=== PATIENT | male | born 1980 | race Two or more races ===

== ENCOUNTER 2020-04-08 07:40 | Outpatient (REF) | payer OTHER, SELFPAY ==
--- NOTE | ~2020-04-08 | US_ITS ---
EXAMINATION: US ABDOMEN COMPLETE CLINICAL INFORMATION: Right upper quadrant pain. COMPARISON: None TECHNIQUE: Real-time imaging of the abdominal viscera. FINDINGS: PANCREAS: Visualized portions ABDOMINAL AORTA: The proximal, mid, and distal segments are normal in caliber. INFERIOR VENA CAVA: Visualized portions are normal. LIVER: Normal. The liver is normal in size. The liver contour is normal. Parenchymal echogenicity is normal. No focal hepatic lesion. There is no intrahepatic biliary duct dilatation seen. A tiny anechoic cyst in the right lobe measures 0.6 cm. GALLBLADDER: Normal. The gallbladder is physiologically distended without evidence of stones, sludge, polyps, wall thickening or pericholecystic fluid. COMMON BILE DUCT: Normal in caliber measuring 0.5 cm in diameter. RIGHT KIDNEY: Normal. No hydronephrosis. No renal calculi or focal parenchymal lesions. The kidney measures 10.6 cm in maximum dimension. LEFT KIDNEY: Normal. No hydronephrosis. No renal calculi or focal parenchymal lesions. The kidney measures 11.7 cm in maximum dimension. SPLEEN: Normal. The spleen measures 14.0 cm in maximum dimension. FREE FLUID: None. OTHER: In the region of the palpable lump in the right flank is a subcutaneous echogenic focus just deep to the skin measuring 1.5 x 1.0 x 1.1 cm. A similar centimeters echogenic focus is also seen in the left flank measuring 0.8 x 0.6 x 0.6 cm. Color Doppler showed no abnormal vascular flow. US/US abdomen complete IMPRESSION: 1. Tiny right hepatic cyst demonstrates benign features without other significant intra-abdominal abnormality. 2. Tiny subcutaneous echogenic foci in the flanks bilaterally correlate with the palpable lumps. These demonstrate benign features most consistent with small lipomas. * If these findings persist or enlarge, short-term repeat targeted soft tissue ultrasound can be performed as clinically indicated to assess for change.
[2020-04-08 08:48] LABS: Hematocrit 41.3 % (42-52); Hemoglobin 13.4 g/dl (14.0-18.0); Mean Corpuscular HGB Conc 32.4 g/dl (31.0-36.0); Mean Corpuscular Hemoglobin 29.6 pg (27.0-33.0); Mean Corpuscular Volume 91.4 fL (80-98); Mean Platelet Volume 10.9 fL (9.4-12.4); Platelet Count 252 X10*3/uL (160-400); Red Blood Count 4.52 X10*6/uL (4.60-5.80); Red Cell Distribution Width 13.1 % (11.0-16.0); White Blood Count 7.6 X10*3/uL (4.8-10.8)
[2020-04-08 09:03] LABS: Estimated Average Glucose 108 mg/dL; Hemoglobin A1c % 5.4 %
[2020-04-08 09:10] LABS: Alanine Aminotransferase 17 U/L (0-40); Albumin Level 4.2 g/dL (3.5-5.0); Alkaline Phosphatase 61 U/L (39-117); Anion Gap 13 (12-20); Aspartate Amino Transferase 19 U/L (5-37); Bilirubin Total 0.5 mg/dL (0.0-1.0); Blood Urea Nitrogen 17 mg/dL (9-16); Calcium 8.8 mg/dL (8.4-10.2); Carbon Dioxide 26 mmol/L (22-29); Chloride 103 mmol/L (96-108); Cholesterol 244 mg/dL; Estimated Glomerular Filt Rate > 60; Glucose Fasting 92 mg/dL (60-99); HDL Cholesterol 42 mg/dL; LDL Cholesterol Calculated 175 mg/dl; Potassium 4.3 mmol/L (3.3-5.1); Sodium 138 mmol/L (135-145); Triglycerides 138 mg/dL
[2020-04-08 09:33] LABS: TSH reflex Free T4 1.73 uIU/mL (0.32-4.0)
[2020-04-08 10:31] LABS: HBc Num1 0.06 S/CO (0.00-0.79); Hepatitis B Core Antibody Nonreactive (Nonreactive); ~Hepatitis B Surface Antibody NONREACTIVE (Nonreactive)
[2020-04-08 10:37] LABS: HBsAGNum1 0.25 S/CO (0.00-0.99); HIV AB/AG Nonreactive (Nonreactive); HIV Num 1 0.06 S/CO (0.00-0.99); Hepatitis B Surface Antigen Negative (Negative); ~Hepatitis C Antibody Nonreactive (Nonreactive)
[2020-04-09 09:40] LABS: Syphilis Screen Nonreactive (Nonreactive)
== END 2020-04-08 07:41 | disposition home or self-care (01) ==
LOC: HO.US 07:40
PROVIDERS: Visit Provider Physician Assistant
DX: Z11.4 Encounter for screening for human immunodeficiency virus [HIV] (principal); Z11.3 Encounter for screening for infections with a predominantly sexual mode of transmission; Z13.1 Encounter for screening for diabetes mellitus; Z13.220 Encounter for screening for lipoid disorders; R10.11 Right upper quadrant pain; I10 Essential (primary) hypertension; E66.9 Obesity, unspecified
CPT/HCPCS: 36415; 76700; 80053; 80061; 83036; 84443; 85027; 86704; 86706; 86780; 86803; 87340; 87389

== ENCOUNTER → 2020-11-03 08:05 | Outpatient (BNVA) | payer OTHER, SELFPAY | PROVIDERS: PCP Physician Assistant; Visit Provider Surgery ==

== ENCOUNTER 2020-11-05 07:39 | Outpatient (REF) | payer OTHER, SELFPAY ==
--- NOTE | ~2020-11-05 | XR_ITS ---
EXAMINATION: XR HAND, RIGHT XR HAND, LEFT CLINICAL INFORMATION: Pain. COMPARISON: None. TECHNIQUE: AP, oblique, and lateral views of the right and left hand. FINDINGS: Right Hand: No fracture or dislocation. Normal carpal alignment. No significant joint space narrowing or marginal osteophytes. No osseous erosion. No periarticular osteopenia. No abnormal soft tissue calcification. Left Hand: No fracture or dislocation. Normal carpal alignment. No significant joint space narrowing or marginal osteophytes. No osseous erosion. No periarticular osteopenia. No abnormal soft tissue calcification. XR/XR hand RT 2V IMPRESSION: RIGHT HAND: Unremarkable examination. LEFT HAND: Unremarkable examination.
--- NOTE | ~2020-11-05 | XR_ITS ---
EXAMINATION: XR HAND, RIGHT XR HAND, LEFT CLINICAL INFORMATION: Pain. COMPARISON: None. TECHNIQUE: AP, oblique, and lateral views of the right and left hand. FINDINGS: Right Hand: No fracture or dislocation. Normal carpal alignment. No significant joint space narrowing or marginal osteophytes. No osseous erosion. No periarticular osteopenia. No abnormal soft tissue calcification. Left Hand: No fracture or dislocation. Normal carpal alignment. No significant joint space narrowing or marginal osteophytes. No osseous erosion. No periarticular osteopenia. No abnormal soft tissue calcification. XR/XR hand LT 2V IMPRESSION: RIGHT HAND: Unremarkable examination. LEFT HAND: Unremarkable examination.
--- NOTE | ~2020-11-05 | XR_ITS ---
EXAMINATION: XR CHEST CLINICAL INFORMATION: Obesity. COMPARISON: None. TECHNIQUE: 2 views of the chest were obtained. FINDINGS: The lungs are clear. The cardiomediastinal silhouette is normal in size. There is no pleural effusion or pneumothorax. No acute osseous abnormality. XR/XR chest 2V IMPRESSION: No acute cardiopulmonary findings.
--- NOTE | 2020-11-05 08:10 | ECG_ITS ---
Test Reason : obesity Blood Pressure : / mmHG Vent. Rate : 064 BPM Atrial Rate : 064 BPM P-R Int : 110 ms QRS Dur : 108 ms QT Int : 438 ms P-R-T Axes : 024 000 040 degrees QTc Int : 451 ms Sinus rhythm with short TX Otherwise normal ECG No previous ECGs available Referred By: Krishna Dorado Electronically Signed By:WILLI BROCK
[2020-11-05 08:45] LABS: MANUAL DIFF FLAG NO
[2020-11-05 09:01] LABS: Basophils Percent Auto 0.5 % (0-2); Eosinophils Absolute Auto 0.1 X10*3/uL (0.0-0.4); Eosinophils Percent Auto 2.3 % (0-4); Hematocrit 41.1 % (42-52); Hemoglobin 13.2 g/dl (14.0-18.0); Imm Gran Abs Auto 0.02 X10*3/uL (0.00-0.03); Imm Gran Pct Auto 0.3 % (0.0-0.4); Lymphocytes Absolute Auto 1.9 X10*3/uL (1.2-4.9); Mean Corpuscular HGB Conc 32.1 g/dl (31.0-36.0); Mean Corpuscular Hemoglobin 29.1 pg (27.0-33.0); Mean Corpuscular Volume 90.7 fL (80-98); Mean Platelet Volume 10.6 fL (9.4-12.4); Monocytes Absolute Auto 0.4 X10*3/uL (0.1-1.2); Monocytes Percent Auto 6.8 % (2-11); Neutrophils Absolute Auto 3.5 X10*3/uL (2.0-8.3); Neutrophils Percent Auto 58.1 % (45-73); Platelet Count 265 X10*3/uL (160-400); Red Blood Count 4.53 X10*6/uL (4.60-5.80); Red Cell Distribution Width 13.2 % (11.0-16.0); White Blood Count 6.1 X10*3/uL (4.8-10.8)
[2020-11-05 09:19] LABS: Estimated Average Glucose 108 mg/dL; Hemoglobin A1c % 5.4 %
[2020-11-05 09:20] LABS: Alanine Aminotransferase 16 U/L (0-40); Albumin Level 4.1 g/dL (3.5-5.0); Alkaline Phosphatase 61 U/L (39-117); Anion Gap 11 (12-20); Aspartate Amino Transferase 21 U/L (5-37); Bilirubin Total 0.7 mg/dL (0.0-1.0); Blood Urea Nitrogen 18 mg/dL (9-16); C Reactive Protein 1.02 mg/dL (< or = 0.50); Calcium 8.6 mg/dL (8.4-10.2); Carbon Dioxide 25 mmol/L (22-29); Chloride 105 mmol/L (96-108); Cholesterol 205 mg/dL; Estimated Glomerular Filt Rate > 60; Glucose Random 95 mg/dL (60-115); HDL Cholesterol 41 mg/dL; Iron 80 mcg/dL (45-160); LDL Cholesterol Calculated 137 mg/dl; Percent Iron Saturation 26 % (15-50); Potassium 4.3 mmol/L (3.3-5.1); Sodium 137 mmol/L (135-145); Total Iron Binding Capacity 305 mcg/dL (228-428); Total Protein 6.8 g/dL (6.5-8.0); Triglycerides 139 mg/dL; Unsaturated Iron Binding 225 ug/dL
[2020-11-05 09:43] LABS: Ferritin 49 ng/mL (20-250); TSH reflex Free T4 1.72 uIU/mL (0.32-4.0)
[2020-11-05 09:52] LABS: Folate 12.2 ng/mL (> or = 4.0); Vitamin B12 285 pg/mL (200-900)
[2020-11-08 14:02] LABS: Calcium (PTHI) 8.8 mg/dL (8.6-10.3); Insulin Level Total 25.4 uIU/mL; PTHI 70 pg/mL (14-64)
[2020-11-09 06:20] LABS: Zinc 99 mcg/dL (60-130)
[2020-11-10 13:22] LABS: Vitamin B1 10 nmol/L (8-30)
[2020-11-11 16:32] LABS: Vitamin A 38 mcg/dL (38-98)
== END 2020-11-05 07:40 | disposition home or self-care (01) ==
LOC: HO.LAB 07:39
PROVIDERS: PCP Physician Assistant; Visit Provider Surgery
DX: E66.01 Morbid (severe) obesity due to excess calories (principal); K21.9 Gastro-esophageal reflux disease without esophagitis; I10 Essential (primary) hypertension; E78.5 Hyperlipidemia, unspecified; M79.641 Pain in right hand; M79.642 Pain in left hand
CPT/HCPCS: 36415; 71046; 73120; 80053; 80061; 82306; 82607; 82728; 82746; 83036; 83525; 83540; 83970; 84425; 84443; 84590; 84630; 85025; 86140; 93005

== ENCOUNTER 2020-11-23 | Outpatient (REF) | payer OTHER, SELFPAY ==
[2020-11-24 11:03] LABS: H Pylori Breath Test Positive (Negative)
== END 2020-11-23 00:01 | disposition home or self-care (01) ==
LOC: HO.LNP
PROVIDERS: Visit Provider Surgery
DX: E66.01 Morbid (severe) obesity due to excess calories (principal); E78.5 Hyperlipidemia, unspecified; I10 Essential (primary) hypertension; K21.9 Gastro-esophageal reflux disease without esophagitis
CPT/HCPCS: 83013

== ENCOUNTER → 2020-11-23 08:16 | Outpatient (BNVA) | payer OTHER, SELFPAY | PROVIDERS: PCP Physician Assistant; Referring Provider Physician Assistant; Visit Provider Physician Assistant | DX: Z11.0 Encounter for screening for intestinal infectious diseases (principal) | CPT/HCPCS: 99211 ==

== ENCOUNTER → 2020-11-26 08:03 | Outpatient (BNVA) | payer OTHER, SELFPAY | PROVIDERS: PCP Physician Assistant; Visit Provider Surgery ==

== ENCOUNTER 2020-11-29 13:10 | Emergency (ER) | payer OTHER, SELFPAY ==
--- NOTE | ~2020-11-29 | XR_ITS ---
EXAMINATION: NECK X-RAY, CHEST X-RAY AND KUB CLINICAL INFORMATION: Small omental COMPARISON: Previous chest x-ray October 2020 TECHNIQUE: 2 views of the neck, one view of the chest and one view of the abdomen and pelvis FINDINGS: Neck: Bone alignment is normal. No fracture or dislocation is seen. Disc spaces are normal. Soft tissues of the neck are normal. No radiopaque soft tissue foreign body or abnormal air collection is seen. CHEST: The cardiac and mediastinal contours are normal. The lungs are clear. There is no pleural effusion or pneumothorax. Bony structures are unremarkable. Abdomen and pelvis: There is a small 2 x 8 mm radiopaque density that projects over the right T11 vertebral body in the upper mid abdomen in the region of the distal stomach. It is uncertain whether this represents a surgical clip or could represent a metal foreign body. The bowel gas pattern is normal. There is no free air. Bony structures are normal. XR/XR chest 1V IMPRESSION: Normal neck and chest x-rays. 2 x 8 mm radiopaque density projecting over the upper midline abdomen/region of the distal stomach. It is uncertain whether this represents a surgical clip or could represent swallowed metal foreign body.
--- NOTE | ~2020-11-29 | XR_ITS ---
EXAMINATION: NECK X-RAY, CHEST X-RAY AND KUB CLINICAL INFORMATION: Small omental COMPARISON: Previous chest x-ray October 2020 TECHNIQUE: 2 views of the neck, one view of the chest and one view of the abdomen and pelvis FINDINGS: Neck: Bone alignment is normal. No fracture or dislocation is seen. Disc spaces are normal. Soft tissues of the neck are normal. No radiopaque soft tissue foreign body or abnormal air collection is seen. CHEST: The cardiac and mediastinal contours are normal. The lungs are clear. There is no pleural effusion or pneumothorax. Bony structures are unremarkable. Abdomen and pelvis: There is a small 2 x 8 mm radiopaque density that projects over the right T11 vertebral body in the upper mid abdomen in the region of the distal stomach. It is uncertain whether this represents a surgical clip or could represent a metal foreign body. The bowel gas pattern is normal. There is no free air. Bony structures are normal. XR/XR soft tissue neck IMPRESSION: Normal neck and chest x-rays. 2 x 8 mm radiopaque density projecting over the upper midline abdomen/region of the distal stomach. It is uncertain whether this represents a surgical clip or could represent swallowed metal foreign body.
--- NOTE | ~2020-11-29 | XR_ITS ---
EXAMINATION: NECK X-RAY, CHEST X-RAY AND KUB CLINICAL INFORMATION: Small omental COMPARISON: Previous chest x-ray October 2020 TECHNIQUE: 2 views of the neck, one view of the chest and one view of the abdomen and pelvis FINDINGS: Neck: Bone alignment is normal. No fracture or dislocation is seen. Disc spaces are normal. Soft tissues of the neck are normal. No radiopaque soft tissue foreign body or abnormal air collection is seen. CHEST: The cardiac and mediastinal contours are normal. The lungs are clear. There is no pleural effusion or pneumothorax. Bony structures are unremarkable. Abdomen and pelvis: There is a small 2 x 8 mm radiopaque density that projects over the right T11 vertebral body in the upper mid abdomen in the region of the distal stomach. It is uncertain whether this represents a surgical clip or could represent a metal foreign body. The bowel gas pattern is normal. There is no free air. Bony structures are normal. XR/XR KUB IMPRESSION: Normal neck and chest x-rays. 2 x 8 mm radiopaque density projecting over the upper midline abdomen/region of the distal stomach. It is uncertain whether this represents a surgical clip or could represent swallowed metal foreign body.
[2020-11-29 13:42] VITALS: BP 109/76; PULSE 63; RESP 16; TEMP 35.9; O2SAT 97; BMI 45.6
--- NOTE | 2020-11-29 15:42 | ED.GENADULT ---
HPI - General Adult General Chief complaint: Skin/Abscess/Foreign Body Stated complaint: FB in throat Time Seen by Provider: 11/29/20 16:23 Source: patient Mode of arrival: ambulatory Limitations: no limitations History of Present Illness HPI narrative: Patient presents to ED for possibly swallowing metal. Patient states he was drinking a Wendi and open the tab to open the drink and started having his beverage. Patient states while drinking he might have swallowed the metal tab when it got lose. Patient states this occurred around 13:00. Patient denies at that time eating meat with bones or fish bones. Patient denies any drooling, shortness of breath, change in voice, or sensation of choking Related Data Home Medications Medication Instructions Recorded Confirmed ibuprofen 200 mg tablet (Advil) 200 mg PO Q6H PRN 11/03/20 11/03/20 Previous Rx's Medication Instructions Recorded fluticasone propionate 50 1 spray INTRANASAL Q12H 30 Days 03/25/20 mcg/actuation nasal #16 g spray,suspension ipratropium bromide 21 mcg (0.03 2 spray INTRANASAL BID 30 Days #30 04/22/20 %) nasal spray ml omeprazole 20 mg capsule,delayed 20 mg PO DAILY 30 Days #30 cap 04/22/20 release blood pressure kit-extra large #1 ea 10/07/20 naproxen 500 mg tablet 500 mg PO BID 30 Days #60 tab 10/07/20 amoxicillin 500 mg capsule 500 mg PO Q12H #28 cap 11/26/20 cholecalciferol (vitamin D3) 125 125 mcg PO DAILY #30 cap 11/26/20 mcg (5,000 unit) capsule clarithromycin 500 mg tablet 500 mg PO Q12H #28 tab 11/26/20 mecobalamin (vitamin B12) 1,000 1,000 mcg SUBLINGUAL DAILY #30 tab 11/26/20 mcg disintegrating tablet,sublingual omeprazole 40 mg capsule,delayed 40 mg PO DAILY #14 cap 11/26/20 release Allergies Allergy/AdvReac Type Severity Reaction Status Date / Time loratadine [From Claritin] AdvReac TACHYCARDIA Verified 11/03/20 16:01 Review of Systems Review of Systems: Yes all other systems are reviewed and are negative Constitutional: Constitutional: Reports as per HPI and Reports no additional constitutional complaints Eyes: Eyes: Reports as per HPI and Reports no additional eye complaints ENT: Reports system reviewed and no additional complaints, except as documented and Reports as per HPI Cardiovascular: Cardiovascular: Reports as per HPI and Reports no additional cardiovascular complaints Respiratory: Respiratory: Reports as per HPI and Reports no additional respiratory complaints Gastrointestinal: Gastrointestinal: Reports as per HPI and Reports no additional gastrointestinal complaints Genitourinary: Genitourinary: Reports no additional male genitourinary complaints and Reports as per HPI Musculoskeletal: Musculoskeletal: Reports no additional musculoskeletal complaints and Reports as per HPI Neurologic: Reports system reviewed and no additional complaints, except as documented and Reports as per HPI Psychiatric: Psychiatric: Reports no additional psychiatric complaints and Reports as per HPI [facility] Past Medical History Medical History (Updated 11/29/20 @ 16:39 by CHARLENE Granados) Anxiety Depression DJD (degenerative joint disease) Hyperlipidemia Morbid obesity Vitamin B12 deficiency Vitamin D deficiency Surgical History (Updated 11/02/20 @ 11:48 by NAT Doss) History of pilonidal cyst Family History Family History (Updated 11/02/20 @ 11:50 by NAT Doss) Father Hepatocellular carcinoma Mother Hypertension Asthma Sister No problems noted. Sister No problems noted. Brother No problems noted. Brother No problems noted. Daughter No problems noted. Social History Social History (Updated 11/03/20 @ 10:06 by NAT Doss) Housing: Apartment Alcohol intake: former Patient Tobacco Use Status: Former Tobacco user e-Cigarette/Vaping Use: Never Used Second Hand Smoke Exposure: No Advance Directives: No Advance Directives Information Provided: No service: No Current occupational status: disabled Current occupation: [employer] Physical Exam Vital Signs: Vital Signs: Last Vital Signs Temp 96.6 F L 11/29/20 13:42 Pulse 63 11/29/20 13:42 Resp 16 11/29/20 13:42 BP 109/76 11/29/20 13:42 Pulse Ox 97 11/29/20 13:42 Body Mass Index 45.6 Const: General: cooperative, healthy appearing, comfortable, no acute distress, well developed, alert, awake and Physically active Orientation/consciousness: patient oriented x3 HENMT: Head: Yes normal to inspection, Yes No palpable skull fracture present, Yes normocephalic, Yes atraumatic and No abrasion Teeth and gingiva: dentition normal and gingiva normal Throat: Yes posterior oropharynx normal, Yes tonsils normal and Yes uvula midline Eyes: General: appearance normal, both eyes and all related structures Neck: Neck: Yes normal visual inspection, Yes full ROM, Yes no lymphadenopathy, Yes no meningeal signs, Yes trachea midline, Yes supple and No tender Chest: Chest palpation & inspection: normal inspection of the chest and normal palpation of entire chest wall Resp: Effort & Inspection: normal respiratory effort and able to speak in complete sentences Auscultation: clear to auscultation bilaterally Cardio: Jugular venous distension: no JVD Heart sounds: S1 normal heart sound present and S2 normal heart sound present GI: Inspection: Yes normal to inspection and No abdominal wall ecchymosis Palpation (GI): Soft to palpation, not firm, nontender, no guarding and not rigid : General: No CVA tenderness and Yes no CVA tenderness Back/Spine/Pelvis: Back: no CVA tenderness, No CVA tenderness and No back tenderness Skin: General skin exam: no rashes or lesions noted and elasticity normal Neuro: General: patient oriented x3, gait normal, no meningeal signs and CN's II-XI intact bilaterally Cranial nerves: Yes CN's II-XII intact bilaterally Extrem: General: Yes normal to inspection and Yes full ROM Psych: Appearance: grossly normal, well kempt and not disheveled Course Course Course Narrative: Patient speaking in full sentences and not using accessory muscles. Patient negative any drooling or hoarse voice. Will send for imaging. Reevaluation(s) Reevaluation #1: X-ray shows small metal foreign body already in abdomen. It is not sharp. Patient will pass metal foreign body. Patient informed to return to the ED for severe abdominal pain, rectal bleeding, vomiting blood, or any other concerning symptoms. Time: 16:36 Medical Decision Making [facility] Narrative Medical decision making narrative: Foreign body Discharge Plan Discharge Clinical Impression: Foreign body ingestion Patient Disposition: Home, Self-Care Instructions: Foreign Body Ingestion (ED) Additional Instructions: X-ray shows metal foreign body already in abdomen it should pass. Return to the ED immediately for any rectal bleeding, vomiting blood, abdominal pain, nausea, vomiting, fever, chills, or any other concerning symptoms. Prescriptions: No Action fluticasone propionate 50 mcg/actuation spray,suspension 1 spray intranasal Q12H 30 Days Qty: 16 RF: 3 omeprazole 20 mg capsule,delayed release(DR/EC) 20 mg PO DAILY 30 Days Qty: 30 RF: 3 ipratropium bromide 21 mcg (0.03 %) spray,non-aerosol 2 spray intranasal BID 30 Days Qty: 30 RF: 1 (DME) blood pressure kit-extra large Kit See Rx Instructions .Route Qty: 1 RF: 0 naproxen 500 mg tablet 500 mg PO BID 30 Days Qty: 60 RF: 0 mecobalamin (vitamin B12) 1,000 mcg tablet,disintegrating 1,000 mcg sublingual DAILY Qty: 30 RF: 2 cholecalciferol (vitamin D3) 125 mcg (5,000 unit) capsule 125 mcg PO DAILY Qty: 30 RF: 2 omeprazole 40 mg capsule,delayed release(DR/EC) 40 mg PO DAILY Qty: 14 RF: 0 amoxicillin 500 mg capsule 500 mg PO Q12H Qty: 28 RF: 0 clarithromycin 500 mg tablet 500 mg PO Q12H Qty: 28 RF: 0 ibuprofen [Advil] 200 mg tablet 200 mg PO Q6H PRNRF: 0 Interventions: ED Discharge Assessment Last Done: 11/29/20 16:43 Discharge Date/Time: 11/29/20 16:44 Print Language: Citizen Of [place]
--- NOTE | 2020-11-29 16:41 | PC.NURSE ---
NO DIFF BREATHING, SPEAKING IN FULL SENTENCES, RESP WNL, ABLE TO TOLERATE PO FLUIDS.
== END 2020-11-29 16:44 | disposition home or self-care (01) ==
PROVIDERS: Emergency Provider Emergency Medicine; PCP Physician Assistant
DX: T18.9XXA Foreign body of alimentary tract, part unspecified, initial encounter (principal); X58.XXXA Exposure to other specified factors, initial encounter; Y93.9 Activity, unspecified; Y92.9 Unspecified place or not applicable; Y99.9 Unspecified external cause status
CPT/HCPCS: 70360; 71045; 74018; 99283

== ENCOUNTER → 2020-12-02 12:37 | Outpatient (BNVA) | payer OTHER, SELFPAY | PROVIDERS: PCP Physician Assistant; Referring Provider Physician Assistant; Visit Provider Physician Assistant Surgical ==

== ENCOUNTER → 2020-12-03 08:44 | Outpatient (BNVA) | payer OTHER, SELFPAY | PROVIDERS: PCP Physician Assistant; Visit Provider Dietitian, Registered | DX: E66.01 Morbid (severe) obesity due to excess calories (principal); Z68.41 Body mass index [BMI] 40.0-44.9, adult | CPT/HCPCS: 97802 ==

== ENCOUNTER → 2020-12-09 08:31 | Outpatient (REF) | payer OTHER, SELFPAY ==
--- NOTE | ~2020-12-09 | FL_ITS ---
EXAMINATION: XR GI SERIES CLINICAL INFORMATION: Morbid/severe obesity due to excess calories. COMPARISON: None. TECHNIQUE: Routine upper GI air-contrast study was performed. FINDINGS: Following oral administration of thick barium and effervescent granules, there is normal propagation of bolus from the oral cavity through the pharynx and esophagus and into the stomach without any evidence of obstruction, narrowing or stricture. The course, caliber and peristalsis of stomach, duodenal bulb and the sweep is normal. The mucosal pattern of the duodenal bulb and the sweep are normal. FLUOROSCOPY TIME: 1.3 minutes. DOSE AREA PRODUCT: 687 uGy-m2 (microgray-meter squared). FL/FL upper GI series IMPRESSION: Unremarkable upper GI air-contrast study.
--- NOTE | ~2020-12-09 | US_ITS ---
EXAMINATION: US COMPLETE ABDOMEN WITH LIVER ELASTOGRAPHY CLINICAL INFORMATION: Obesity COMPARISON: None. TECHNIQUE: Real-time imaging of the abdominal viscera. Noninvasive ultrasound liver fibrosis assessment is performed using Mal ElastPQ point quantification shear wave elastography (pSWE) with a C5-2 MHz transducer. Multiple elastography samples are obtained. FINDINGS: PANCREAS: Normal. ABDOMINAL AORTA: The proximal, middle, and distal aortic segments are normal in caliber. INFERIOR VENA CAVA: Visualized portions are normal. LIVER: Liver echotexture is slightly increased. The liver is normal in size and contour. There is a 9 x 7 x 6 mm cyst in the right lobe of the liver.. No other focal lesion or intrahepatic biliary duct dilatation. The right lobe measures 17 cm in length. The left lobe measures 10 cm in length. Portal flow is normal/hepatopedal Shear wave liver elastography median stiffness is 1.25 m/s (reference: normal median stiffness is 1.3 m/s or less). IQR/median stiffness to assess sampling precision is 0.16 (reference: good quality data set is IQR/median stiffness of 0.15 or less). GALLBLADDER: Normal. The gallbladder is physiologically distended without evidence of stones, sludge, polyps, wall thickening or pericholecystic fluid. COMMON BILE DUCT: Normal in caliber measuring 0.5 cm in diameter. RIGHT KIDNEY: Normal. No hydronephrosis. No renal calculi or focal parenchymal lesions. The kidney measures 9.6 cm in maximum dimension. LEFT KIDNEY: Normal. No hydronephrosis. No renal calculi or focal parenchymal lesions. The kidney measures 11 cm in maximum dimension. SPLEEN: Upper normal in size. The spleen measures 13 cm in maximum dimension. FREE FLUID: None. US/US abdomen comp w elastography IMPRESSION: 1. Impression: echogenic liver probably representing fatty infiltration. Upper normal-size spleen. 2. Liver elastography: Adequate liver sampling. Normal liver stiffness. REFERENCE: Society of Radiologists in Ultrasound Liver Stiffness Thresholds (2020): LIVER STIFFNESS THRESHOLDS: *Liver Stiffness equal or less than 1.3 m/s: High probability of being normal. *Liver Stiffness less than 1.7 m/s: In the absence of other known clinical signs, rules out compensated advanced chronic liver disease. *Liver Stiffness 1.7-2.1 m/s: Suggestive of compensated advanced chronic liver disease but need further test for confirmation. *Liver Stiffness over 2.1 m/s: Rules in compensated advanced chronic liver disease. *Liver Stiffness over 2.4 m/s: Suggestive of clinically significant portal hypertension. QUALITY OF DATA SET: *IQR/Median value equal or less than 0.15 implies a quality data set. *IQR/Median value over 0.15 implies a poor quality data set. SIGNIFICANT CHANGE FROM PRIOR EXAM: Significant change if liver stiffness measurement is 10% or greater from prior exam. OTHER CONSIDERATIONS: The stage of liver fibrosis may be overestimated in the setting of acute hepatitis, liver inflammation, elevated liver function tests, hepatic vascular congestion, obstructive cholestasis, non-fasting state, and infiltrative diseases such as amyloidosis and lymphoma. In some patients with NAFLD, the liver stiffness thresholds for compensated advanced chronic liver disease may be lower. In causes other than viral hepatitis and NAFLD, liver stiffness thresholds are not well established.
== END ==
LOC: HO.SL 08:31
PROVIDERS: PCP Physician Assistant; Visit Provider Surgery
DX: Z01.818 Encounter for other preprocedural examination (principal); G47.10 Hypersomnia, unspecified; K21.9 Gastro-esophageal reflux disease without esophagitis; I10 Essential (primary) hypertension; E78.5 Hyperlipidemia, unspecified; E66.01 Morbid (severe) obesity due to excess calories
CPT/HCPCS: 74240; 76705; 76981; 95806

== ENCOUNTER → 2020-12-23 13:22 | Outpatient (BNVA) | payer OTHER, SELFPAY | PROVIDERS: PCP Physician Assistant; Visit Provider Internal Medicine | DX: G47.33 Obstructive sleep apnea (adult) (pediatric) (principal); E66.01 Morbid (severe) obesity due to excess calories | CPT/HCPCS: 99212 ==

== ENCOUNTER → 2020-12-31 08:06 | Outpatient (BNVA) | payer OTHER, SELFPAY | PROVIDERS: PCP Physician Assistant; Visit Provider Surgery ==

== ENCOUNTER 2021-03-17 07:48 | Outpatient (REF) | payer OTHER, SELFPAY ==
[2021-03-17 08:24] LABS: Estimated Average Glucose 111 mg/dL; Hemoglobin A1c % 5.5 %
[2021-03-17 08:29] LABS: Alanine Aminotransferase 18 U/L (0-40); Albumin Level 4.1 g/dL (3.5-5.0); Alkaline Phosphatase 66 U/L (39-117); Anion Gap 12 (12-20); Aspartate Amino Transferase 26 U/L (5-37); Bilirubin Total 0.3 mg/dL (0.0-1.0); Blood Urea Nitrogen 16 mg/dL (9-16); Calcium 9.4 mg/dL (8.4-10.2); Carbon Dioxide 25 mmol/L (22-29); Chloride 104 mmol/L (96-108); Cholesterol 235 mg/dL; Estimated Glomerular Filt Rate > 60; Glucose Fasting 106 mg/dL (60-99); HDL Cholesterol 40 mg/dL; LDL Cholesterol Calculated 173 mg/dl; Potassium 4.3 mmol/L (3.3-5.1); Sodium 137 mmol/L (135-145); Total Protein 7.3 g/dL (6.5-8.0); Triglycerides 111 mg/dL
[2021-03-17 08:50] LABS: TSH reflex Free T4 1.87 uIU/mL (0.32-4.0)
[2021-03-17 09:55] LABS: Folate 14.1 ng/mL (> or = 4.0); Vitamin B12 423 pg/mL (200-900)
[2021-03-17 10:20] LABS: Creatinine Urine 126.72 mg/dL; Microalbum/Creatinine Ratio Ur 5.5 ug/mg cr
== END 2021-03-17 07:49 | disposition home or self-care (01) ==
LOC: HO.LAB 07:48
PROVIDERS: PCP Physician Assistant; Visit Provider Physician Assistant
DX: I10 Essential (primary) hypertension (principal); E66.01 Morbid (severe) obesity due to excess calories; E78.5 Hyperlipidemia, unspecified; E53.8 Deficiency of other specified B group vitamins
CPT/HCPCS: 36415; 80053; 80061; 82043; 82306; 82607; 82746; 83036; 84443

== ENCOUNTER → 2021-03-23 10:20 | Outpatient (BNVA) | payer OTHER, SELFPAY | PROVIDERS: PCP Physician Assistant; Visit Provider Internal Medicine | DX: G47.33 Obstructive sleep apnea (adult) (pediatric) (principal); G47.10 Hypersomnia, unspecified; E66.01 Morbid (severe) obesity due to excess calories; Z68.42 Body mass index [BMI] 45.0-49.9, adult | CPT/HCPCS: 99212 ==

== ENCOUNTER → 2021-05-11 08:26 | Outpatient (BNVA) | payer OTHER, SELFPAY | PROVIDERS: PCP Physician Assistant; Visit Provider Internal Medicine | DX: G47.33 Obstructive sleep apnea (adult) (pediatric) (principal); E66.01 Morbid (severe) obesity due to excess calories; Z59.00 Homelessness unspecified | CPT/HCPCS: 99212 ==

== ENCOUNTER 2023-03-05 08:21 | Outpatient (AMB) | payer OTHER, SELFPAY ==
[2023-03-05 09:04] VITALS: BP 112/70; PULSE 60; O2SAT 98; BMI 35.7
--- NOTE | 2023-03-05 09:04 | MHC.PC.OV ---
Vital Signs 03/05/23 09:04 Height 5 ft 7 in Weight 228 lb 2 oz BMI 35.7 BP 112/70 Blood Pressure Location Lt brachial Position Sitting Pulse 60 Pulse Source Pulse Oximeter Pulse Oximetry (%) 98 Oxygen Delivery Method Room Air Intake Visit Reasons: follow up Intake Note: Pt is here for F/U for DTA forms to be fill out. Today pt complaining of sore throat, runny nose, nasal congestion, possible sinus infection. Multifocal Lens Inspector Required: No Accompanied by: Self / Same As Patient Allergies loratadine [From Claritin] Adverse Reaction (Verified 03/05/23 09:22) TACHYCARDIA Medication List - Last Reconciled 03/05/23 by Deandre Chen PA-C blood pressure kit-extra large As directed clotrimazole 1% 1 appl topical BID 15 days naproxen 500 mg PO BID 30 days omeprazole 20 mg PO DAILY 90 days trazodone 50 mg PO BEDTIME Tobacco use date assessed: 03/05/23 Dental Screening Dental Screen Date: 03/05/23 Did you have a dental visit in the last 12 months?: Yes Did you have a dental problem in the last 6 months where you did not have access to dental care?: No Was dental information given to patient?: Patient has dentist HPI follow up HPI Details Patient is a 42-year-old male here today for follow-up visit. Patient has a past medical history significant for morbid obesity, anxiety depression, hyperlipidemia, hypertension. .. Concerns--> currently has been dealing with allergy symptoms and is interested in restarting allergy medication. Obesity- has lost a significant amount of weight since being incarcerated again. PERCY: Patient does have history of obstructive sleep apnea. He was homeless for a while in lost his CPAP machine in storage. He reports he does not want to be re-evaluated for obstructive sleep apnea start using his CPAP machine again at this time. .. HTN:? Patient's blood pressure acceptable today in office. Advised patient to do home blood pressure monitoring.? Will supply him with paper Rx for a blood pressure monitor again. Morbid obesity:?Has lost weight since last visit likely due to stress and being homeless. Is followed by [place] [facility] management program and is anticipating bariatric surgery.? Major Depression: Still suffers with depression. Has been having a lot of trouble sleeping. Was on trazodone 50 mg in the past and would like to restart this medication. He is also interested in starting up mental health therapy [facility] Medical History Anxiety Depression DJD (degenerative joint disease) Hyperlipidemia Morbid obesity PERCY (obstructive sleep apnea) Vitamin B12 deficiency Vitamin D deficiency Surgical History History of pilonidal cyst Family History Father Hepatocellular carcinoma Mother Hypertension Asthma Sister No problems noted. Sister No problems noted. Brother No problems noted. Brother No problems noted. Daughter No problems noted. Social History Housing: Apartment Alcohol intake: former Patient Tobacco Use Status: Former Tobacco user e-Cigarette/Vaping Use: Never Used Second Hand Smoke Exposure: No service: No Current occupational status: disabled Current occupation: [employer] Cognitive needs: No Hearing needs: No Vision needs: No Questionnaire PHQ-9 Over the last 2 weeks, how often have you been bothered by any of the following problems? 1. Little interest or pleasure in doing things: several days 2. Feeling down, depressed, or hopeless: not at all 3. Trouble falling or staying asleep, or sleeping too much: nearly every day 4. Feeling tired or having little energy: more than half the days 5. Poor appetite or overeating: more than half the days 6. Feeling bad about yourself - or that you are a failure or have let yourself or your family down: more than half the days 7. Trouble concentrating on things, such as reading the newspaper or watching television: nearly every day 8. Moving or speaking so slowly that other people could have noticed. Or the opposite - being so fidgety or restless that you have been moving around a lot more than usual: more than half the days 9. Thoughts that you would be better off or of hurting yourself in some way: not at all Total score: 15 Depression Screening Interpretation: Positive Depression Screening Follow-up: Existing condition and Community Mental Health Worker F/U Depression Screening Done: Yes 95364 - PHQ-9 Billing: Yes Source: Developed by Drs. Bg Galdamez, Laverne Alas, Yohannes Stewart and colleagues, with an educational gold from [employer]. Thrive Questionnaire Date Thrive assessed: 03/05/23 What is your living situation today?: I have a steady place to live Within the past 12 months, did the food you bought not last and you didn't have the money to get more?: Never true Within the past 12 months, did you worry whether your food would run out before you got money to buy more?: Never true Do you have trouble paying for medicines?: No Do you have trouble getting transportation to medical appointments?: No Do you have trouble paying your heating and electricity bill?: No Do you have trouble taking care of your child, family member or friend?: No Do you have trouble with day-to-day activities such as bathing, preparing meals, shopping, managing finances, etc.?: No Are you currently unemployed and looking for a job?: No Are you interested in more education?: No Please select the resources that you would like help with: None AUDIT C Alcohol Use Questionnaire (AUDIT-C) 1. How often do you have a drink containing alcohol?: 2-4 times a month 2. How many drinks containing alcohol do you have on a typical day when you are drinking?: 3 or 4 3. How often do you have six or more drinks on one occasion?: Never Total Score: 3 MONTY-7 AMB Questionnaire MONTY-7 Date MONTY - 7 assessed: 03/05/23 Feeling nervous, anxious, or on edge: 2 = More than half the days Not being able to stop or control worryin = Nearly every day Worrying too much about different things: 3 = Nearly every day Trouble relaxin = Nearly every day Being so restless that it is hard to sit still: 2 = More than half the days Becoming easily annoyed or irritable: 0 = Not at all Feeling afraid as if something awful might happen: 0 = Not at all Total MONTY-7 score (0-4 normal; 5-9 mild; 10-14 moderate; 15-21 severe): 13 Source: Developed by Drs. Bg Galdamez, Laverne Alas, Yohannes Stewart and colleagues, with an educational gold from [employer]. MONTY-7 Assessment Billing MONTY-7 Assessment Tool: MONTY-7 Assessment 70894 Review of Systems Const Denies headache(s) Eyes Denies loss of vision ENT Denies vertigo, Denies dizziness, Denies headache(s) and Denies sore throat Card Denies chest pain, Denies leg edema and Denies lightheadedness Resp Denies cough, Denies hemoptysis and Denies wheezing GI Denies abdominal pain, Denies melena, Denies constipation, Denies diarrhea and Denies vomiting Denies dysuria, Denies urinary frequency and Denies urinary urgency Musc Denies arthralgias, Denies joint swelling, Denies numbness and Denies tingling Neuro Denies Abnormal speech present, Denies behavioral changes, Denies vertigo, Denies dizziness, Denies headache(s), Denies loss of vision, Denies memory loss, Denies numbness and Denies tingling Psych Denies anxiety, Denies behavioral changes, Denies depression, Denies memory loss and Denies panic attacks Moise/Lymph Denies easy bleeding and Denies easy bruising Aller/Immun Denies wheezing Physical exam (Primary Care) Vital Signs: Last Vital Signs Pulse 60 03/05/23 09:04 BP 112/70 03/05/23 09:04 Pulse Ox 98 03/05/23 09:04 Oxygen Delivery Method Room Air 03/05/23 09:04 BMI result Body Mass Index 35.7 Tobacco/Smoking Status: Tobacco use Status Tobacco use date assessed 03/05/23 03/05/23 09:10 Patient Tobacco Use Status Former Tobacco user 03/05/23 09:10 e-Cigarette/Vaping Use Never Used 03/05/23 09:10 PHQ-9: PHQ-9 Score PHQ-9: Total score 03/05/23 09:24 Depression Screening Interpretation: Positive Depression Screening Follow-up: Existing condition and Community Mental Health Worker F/U Thrive Assessment: Date of Thrive Assessment Date Thrive assessed 03/05/23 03/05/23 09:10 Const General: healthy appearing, no acute distress, alert and awake Nutritional Appearance: well nourished Orientation/consciousness: oriented to person, oriented to place and oriented to time HENMT Ears: TM's normal bilaterally General nose exam: Normal nasal mucous membranes and turbinates present Eyes Conjunctivae: conjunctivae normal Sclerae: sclerae normal Pupils: Equal, round and reactive pupils present Neck Neck: Yes no lymphadenopathy and Yes no JVD Thyroid: Thyroid normal Carotids: no bruits Resp Effort & Inspection: normal respiratory effort and not tachypneic Auscultation: no crackles, no rales, no rhonchi and no wheezes Cardio Rate: regular rate Rhythm: regular rhythm Heart sounds: no murmurs and normal S1 and S2 GI Palpation (GI): Soft to palpation, nontender, no hepatomegaly and no splenomegaly Auscultation: normal bowel sounds Skin General skin exam: no rashes or lesions noted and dry skin Neuro General: oriented to person, oriented to place and oriented to time Cranial nerves: Yes Equal, round and reactive pupils present Speech: No Abnormal speech present Gait exam (Neuro): Normal gait present Motor exam (neuro): no tremor noted Extrem Right upper extremity: full ROM Left upper extremity: full ROM Right lower extremity: full ROM; no edema Left lower extremity: full ROM; no edema Psych Mental Status: mental status grossly normal Speech and movement: Normal speech and movement present Affect: normal affect Attitude: cooperative Thought process: Normal thought process present Assessment and Plan Assessment & Plan (1) MDD (major depressive disorder): Code(s): F32.9 - Major depressive disorder, single episode, unspecified Qualifiers: Active/Remission status: currently active Major depression episode severity: moderate Major depression recurrence: single episode Qualified Code(s): F32.1 - Major depressive disorder, single episode, moderate Plan: Patient's PHQ-9 score positive for depression which has been an existing condition for him. He is interested in restarting cognitive behavioral therapy. (2) PERCY (obstructive sleep apnea): Comment: SEVERE OBSTRUCTIVE SLEEP APNEA WITH TOTAL SLEEP TIME AHI 40 HE DEFINITELY NEEDS TO USE CPAP AT NIGHT. HE DOES HAVE THE CPAP, HERMINIO MODEL BY [employer] ,WITH AP SETTINGS OF 6-20 CM FULLFACE MASK. BUT HE IS NOT ABLE TO USE IT BECAUSE HE HAS NO STABLE PLACE TO SLEEP, AND DOES NOT HAVE AVAILABILITY OF THE LACTIC OUTLET. I DISCUSSED WITH HIM AT LENGTH AND ADVISE THAT SOON HE GETS A STABLE PLACE TO LIVE HE SHOULD START USING THE DEVICE. TRY TO MAKE HIM UNDERSTAND THE IMPORTANCE OF USING THE CPAP. IT MIGHT TAKE SOME TIME FOR HIM TO GET ACCLIMATIZED TO THE CPAP USAGE. START WITH A FULLFACE MASK AND ALSO USE WARM HUMIDIFICATION . ALSO INSTRUCTED TO AVOID SLEEPING IN SUPINE POSITION. About 4 weeks after he starts Freed Code(s): G47.33 - Obstructive sleep apnea (adult) (pediatric) Plan: Has history of obstructive sleep apnea. Has lost a significant amount of weight since being incarcerated. He lost his CPAP machine in storage when he was homeless. He has not interested in restarting CPAP machine at this time. (3) Hyperlipidemia: Code(s): E78.5 - Hyperlipidemia, unspecified Qualifiers: Hyperlipidemia type: mixed hyperlipidemia Qualified Code(s): E78.2 - Mixed hyperlipidemia Plan: Patient does elevated total cholesterol LDL. Has been able to manage with lifestyle. Offered low-dose statin therapy though he declines my offers. He will continue to work on lifestyle to reduce his weight and high cholesterol foods in his diet. Goal LDL to be below 160 (4) GERD (gastroesophageal reflux disease): Code(s): K21.9 - Gastro-esophageal reflux disease without esophagitis Qualifiers: Esophagitis presence: without esophagitis Qualified Code(s): K21.9 - Gastro-esophageal reflux disease without esophagitis Plan: Needed a refill on omeprazole as it does help him reduce his GERD symptoms. (5) Obese: Code(s): E66.9 - Obesity, unspecified Qualifiers: Body mass index: BMI 45.0-49.9 Obesity classification: adult class 3 (BMI >= 40) Obesity type: due to excess calories Serious obesity comorbidity presence: without serious comorbidity Qualified Code(s): E66.01 - Morbid (severe) obesity due to excess calories; Z68.42 - Body mass index [BMI] 45.0-49.9, adult Plan: Patient does understand his BMI is over 30 and will continue working on better eating habits and being more physically active to reduce his weight. (6) RLQ abdominal pain: Code(s): R10.31 - Right lower quadrant pain Plan: Reports having intermittent episodes of right lower abdominal quadrant pain. Will send for ultrasound of the abdomen (7) Allergic rhinitis: Code(s): J30.9 - Allergic rhinitis, unspecified Qualifiers: Allergic rhinitis seasonality: unspecified Allergic rhinitis trigger: other Qualified Code(s): J30.89 - Other allergic rhinitis Plan: Will restart antihistamine therapy to help reduce his allergy symptoms. Currently in office sneezing and has rhinorrhea. (8) Sinus infection: Code(s): J32.9 - Chronic sinusitis, unspecified Qualifiers: Sinusitis location: frontal Chronicity: subacute Qualified Code(s): J01.10 - Acute frontal sinusitis, unspecified Orders: Orders Microalbumin, Random (w Creat) Today I10 - Essential (primary) hypertension Lipid Panel Today E78.2 - Mixed hyperlipidemia Comprehensive [place]. Panel Fast Today I10 - Essential (primary) hypertension US abdomen complete Today R10.31 - Right lower quadrant pain UA CC w/rflx Micro + Cult Today R10.31 - Right lower quadrant pain, R30.0 - Dysuria Referrals Counseling Referral F32.9 - Major depressive disorder, single episode, unspecified Medications: New cetirizine (Zyrtec) 10 mg PO DAILY 90 days 90 caps 1RF allergy symptoms J30.89 - Other allergic rhinitis amoxicillin 500 mg PO Q8H 5 days 15 tabs 0RF J32.9 - Chronic sinusitis, unspecified Changed From trazodone 50 mg PO BEDTIME F32.1 - Major depressive disorder, single episode, moderate To trazodone 50 mg PO BEDTIME 90 days 90 tabs 1RF F32.1 - Major depressive disorder, single episode, moderate Refilled blood pressure kit-extra large As directed 1 ea 0RF I10 - Essential (primary) hypertension Coding Level of Care Code Est Pt Level 4 (51770) Diagnoses Current moderate episode of major depressive disorder without prior episode F32.1 Active/Remission status: currently active Major depression episode severity: moderate Major depression recurrence: single episode PERCY (obstructive sleep apnea) G47.33 Mixed hyperlipidemia E78.2 Hyperlipidemia type: mixed hyperlipidemia Gastroesophageal reflux disease without esophagitis K21.9 Esophagitis presence: without esophagitis Class 3 severe obesity due to excess calories without serious comorbidity with body mass index (BMI) of 45.0 to 49.9 in adult E66.01; Z68.42 Body mass index: BMI 45.0-49.9 Obesity classification: adult class 3 (BMI >= 40) Obesity type: due to excess calories Serious obesity comorbidity presence: without serious comorbidity RLQ abdominal pain R10.31 Allergic rhinitis due to other allergic trigger, unspecified seasonality J30.89 Allergic rhinitis seasonality: unspecified Allergic rhinitis trigger: other Subacute frontal sinusitis J01.10 Sinusitis location: frontal Chronicity: subacute Additional Codes MONTY-7 Assessment Billing - MONTY-7 Assessment Tool: MONTY-7 Assessment [id number] ([id number])
== END 2023-03-05 09:40 | disposition home or self-care (01) ==
PROVIDERS: PCP Physician Assistant; Visit Provider Physician Assistant
DX: G47.33 Obstructive sleep apnea (adult) (pediatric) (principal); F32.1 Major depressive disorder, single episode, moderate; E66.01 Morbid (severe) obesity due to excess calories; Z68.42 Body mass index [BMI] 45.0-49.9, adult
CPT/HCPCS: 99214

== ENCOUNTER 2023-06-25 13:59 | Emergency (ER) | payer SELFPAY ==
--- NOTE | ~2023-06-25 | XR_ITS ---
EXAMINATION: XR FOOT, LEFT CLINICAL INFORMATION: Great toe injury, pain COMPARISON: None available. TECHNIQUE: AP, lateral, and oblique views of the left foot. FINDINGS: The bones are intact. No fracture. Alignment is anatomic. Joint spaces are maintained. There is soft tissue swelling of the great toe. XR/XR foot LT min 3V IMPRESSION: No bony abnormality.
[2023-06-25 14:19] VITALS: BP 116/44; PULSE 65; RESP 16; TEMP 36.4; O2SAT 98; BMI 34.5
--- NOTE | 2023-06-25 14:21 | ED_ITS ---
HPI - General Adult General Chief complaint: Extremity Injury, Lower Stated complaint: eye allergies and l big toe inj Time Seen by Provider: 06/25/23 18:14 Source: patient Mode of arrival: ambulatory Limitations: no limitations History of Present Illness HPI narrative: Patient is a 43 year old assigned male at with a history of MDD, GERD, HTN, and HLD presenting to the emergency department today with left great toe pain and eye irritation. Patient states that 4 days ago he was walking on the side walk with sandals and caught his left great toe on an uneven portion of the concrete, injuring the toe. Patient states that all of the pollen has been causing his allergies to act up and irritate his eyes. Patient denies any dizziness, lightheadedness, abdominal pain, nausea, vomiting, fever, chills, blurry vision, double vision, loss of vision, chest pain, difficulty breathing, shortness of breath, back pain, night sweats, pain with urination, increased urinary frequency, increased urinary urgency, blood in his urine or stool, syncope or a near syncopal episode, bowel incontinence, bladder incontinence, bowel retention, bladder retention, or any other complaints at this time. Onset (ago): day(s) (4) Location: eyes, left (and left great toe) and right Radiation: non-radiation Severity: mild Severity scale (1-10): 2 Quality: aching and dull Pain Consistency: constant Relieving factors: none Exacerbating factors: none Associated symptoms: denies other symptoms Treatments prior to arrival: none Related Data Previous Rx's ?Medication ?Instructions ?Recorded clotrimazole 1 % topical cream 1 appl topical BID 15 days #45 02/09/21 grams naproxen 500 mg tablet 500 mg PO BID 30 days #60 tabs 02/09/21 omeprazole 20 mg capsule,delayed 20 mg PO DAILY 90 days #90 caps 05/10/21 release amoxicillin 500 mg tablet 500 mg PO Q8H 5 days #15 tabs 03/05/23 blood pressure kit-extra large #1 ea 03/05/23 cetirizine 10 mg capsule (Zyrtec) 10 mg PO DAILY allergy symptoms 90 03/05/23 days #90 caps trazodone 50 mg tablet 50 mg PO BEDTIME 90 days #90 tabs 03/05/23 Allergies Allergy/AdvReac Type Severity Reaction Status Date / Time loratadine [From Claritin] AdvReac TACHYCARDIA Verified 06/25/23 14:22 Review of Systems Constitutional: Constitutional: Reports no additional constitutional complaints, Denies chills, Denies fever(s) and Denies night sweats Eyes: Eyes: Reports no additional eye complaints, Denies blurry vision, Denies change in vision, Denies diplopia, Denies eye discharge, Reports irritation, Denies loss of vision and Denies eye pain ENT: Denies dizziness Cardiovascular: Cardiovascular: Reports no additional cardiovascular complaints, Denies chest pain, Denies lightheadedness, Denies Loss of Consciousness and Denies dyspnea Respiratory: Respiratory: Reports no additional respiratory complaints and Denies dyspnea Gastrointestinal: Gastrointestinal: Reports no additional gastrointestinal complaints, Denies abdominal pain, Denies melena, Denies hematochezia, Denies change in bowel habits and Denies change in stool character Genitourinary: Genitourinary: Reports no additional male genitourinary complaints, Denies hematuria, Denies oliguria, Denies difficulty urinating, Denies dysuria, Denies urinary frequency, Denies urinary hesitancy, Denies urinary incontinence and Denies urinary urgency Musculoskeletal: Musculoskeletal: Reports no additional musculoskeletal complaints, Denies numbness and Denies tingling Comments: left great toe pain Neurologic: Denies dizziness, Denies loss of vision, Denies numbness and Denies tingling Psychiatric: Psychiatric: Reports no additional psychiatric complaints Endocrine: Endocrine: Reports no additional endocrine complaints Hematologic/Lymphatic: Hematologic/Lymphatic: Reports no additional hematologic/lymphatic complaints Allergic/Immunologic: Allergic/Immunologic: Reports no additional allergic/i mmunologic complaints [facility] Past Medical History Attestation statement: The following information was validated with the patient. Source: old records reviewed and nursing notes reviewed Medical History PERCY (obstructive sleep apnea) Vitamin D deficiency Vitamin B12 deficiency DJD (degenerative joint disease) Anxiety Depression Hyperlipidemia Morbid obesity Surgical History History of pilonidal cyst Family History Family History Father Hepatocellular carcinoma Mother Hypertension Asthma Sister No problems noted. Sister No problems noted. Brother No problems noted. Brother No problems noted. Daughter No problems noted. Social History Social History Housing: Apartment Alcohol intake: former Patient Tobacco Use Status: Former Tobacco user e-Cigarette/Vaping Use: Never Used Second Hand Smoke Exposure: No Advance Directives: No Advance Directives Information Provided: No Do you have a plan to hurt others: No Plan service: No Current occupational status: disabled Current occupation: [employer] Cognitive needs: No Hearing needs: No Vision needs: No Physical Exam ED Vital Signs: Vital Signs - 24 hr 06/25/23 14:19 Temperature 97.6 F Pulse Rate 65 Respiratory Rate 16 Blood Pressure 116/44 L Pulse Oximetry 98 Oxygen Delivery Method Room Air BMI result Body Mass Index 34.5 Const General: cooperative, no acute distress, alert and awake Nutritional Appearance: well nourished Orientation/consciousness: patient oriented x3 Limitations: no limitations HENMT Head: Yes normal to inspection and Yes atraumatic Ears: hearing grossly normal bilaterally and external ears normal General nose exam: Normal external nose present, no nasal discharge noted and no epistaxis Face and sinus: Yes normal facial exam, No abrasion and No laceration Mouth: Normal oral and palatal mucosa present, no drooling and no muffled voice Eyes General: appearance normal, both eyes and all related structures Periorbital: periorbital findings normal Eyelids: Yes eyelids normal Conjunctivae: conjunctivae normal Pupils: Equal, round and reactive pupils present EOM: EOMs intact bilaterally Neck Neck: Yes normal visual inspection, Yes full ROM and Yes no lymphadenopathy Chest Chest palpation & inspection: normal inspection of the chest Resp Effort & Inspection: normal respiratory effort and able to speak in complete sentences GI Inspection: Yes normal to inspection Neuro General: patient oriented x3 and moves all extremities Cranial nerves: Yes Equal, round and reactive pupils present Cognition (Neuro): normal cognition Motor exam (neuro): 5/5 motor strength present throughout Sensory Exam: Normal double simultaneous stimulation for sensation Coordination: [id number] test normal Extrem Other: minimal swelling and bruising present to the left great toe General: Yes full ROM and Yes capillary refill normal Psych Appearance: grossly normal Mental Status: mental status grossly normal Affect: normal affect Attitude: cooperative Thought process: Normal thought process present Thought content: Normal thought content present Insight: Good insight present (Psych) Course Course Course Narrative: RME performed by Raina Person PA-C. Patient is a 43 year old assigned male at presenting to the emergency department with eye irritation secondary to seasonal allergies and left great toe pain. Patient states that he was walking on the side walk with sandals when he caught his left great toe on an uneven piece of sidewalk. Detailed physical exam and review of systems are deferred to the crisis clinician. Imaging ordered. Patient placed back in the waiting room pending room availability and results. Medical Decision Making Medical Decision Making MDM Narrative: Patient is a 43 year old assigned male at with a history of MDD, GERD, HTN, and HLD presenting to the emergency department today with eye irritation and left great toe pain. Patient's physical exam was as noted in the physical exam portion of this note. Patient's eyes were normal in appearance. Patient's left foot x-ray showed no acute process. I explained my physical exam findings as well as all test results to the patient. I answered all questions asked by the patient. I stressed the importance of the patient taking his medication as prescribed. I stressed the importance of the patient following up with his primary care provider. I stressed the importance of the patient returning to the emergency department immediately if his symptoms were to worsen or if he were to develop any dizziness, shortness of breath, difficulty breathing, chest pain, blurry vision, loss of vision, nausea, vomiting, abdominal pain, fever, chills, back pain, or any other complaints. Patient verbalized agreement and understanding with this treatment plan and discharge. Differential Diagnosis Differential Diagnoses: The differential diagnosis associated with the presentation includes Left great toe contusion Left great toe pain Left great toe injury Season allergies Bilateral allergic conjunctivitis Admission/Observation Consideration of admission/observation: Escalation of care including admission/observation considered Patient would have been admitted to the hospital had his work up had any findings where hospital admission was appropriate and his clinical presentation warranted hospital admission. Independent Interpretation I performed an independent interpretation of an: Plain X-Ray Interpretation: My interpretation is in agreement with the radiologist's impression of this imaging study. EXAMINATION: XR FOOT, LEFT CLINICAL INFORMATION: Great toe injury, pain COMPARISON: None available. TECHNIQUE: AP, lateral, and oblique views of the left foot. FINDINGS: The bones are intact. No fracture. Alignment is anatomic. Joint spaces are maintained. There is soft tissue swelling of the great toe. XR/XR foot LT min 3V IMPRESSION: No bony abnormality. Dictated By: Denise Pantoja MD Signed By: Electronically signed by Denise Pantoja MD 06/25/23 2623 Radiology Impression Discussion of test interpretation with radiology: I have reviewed the radiologist's reading. Chronic Conditions Patient?s care impacted by: Hypertension Discharge Plan Discharge Clinical Impression: Contusion of toe, Seasonal allergies Patient Disposition: Home, Self-Care Instructions: Contusion in Adults (ED), Allergies (ED) Additional Instructions: Follow up with your primary care provider. Return to the emergency department immediately if your symptoms worsen or if you develop any dizziness, shortness of breath, difficulty breathing, chest pain, blurry vision, loss of vision, nausea, vomiting, abdominal pain, fever, chills, back pain, or any other complaints. Prescriptions: No Action clotrimazole 1 % cream 1 appl topical BID 15 Days Qty: 45 0RF naproxen 500 mg tablet 500 mg PO BID 30 Days Qty: 60 3RF omeprazole 20 mg capsule,delayed release(DR/EC) 20 mg PO DAILY 90 Days Qty: 90 1RF (DME) blood pressure kit-extra large Kit See Rx Instructions .Route Qty: 1 0RF Rx Instructions: As directed trazodone 50 mg tablet 50 mg PO BEDTIME 90 Days Qty: 90 1RF Zyrtec 10 mg capsule 10 mg PO DAILY 90 Days Qty: 90 1RF amoxicillin 500 mg tablet 500 mg PO Q8H 5 Days Qty: 15 0RF Referrals: Deandre Chen PA-C [Primary Care Provider] - Discharge Date/Time: 06/25/23 18:25 Print Language: American
--- NOTE | 2023-06-25 18:24 | PC.NURSE ---
discharged by provider
== END 2023-06-25 18:25 | disposition home or self-care (01) ==
LOC: HO.ED 18:21
PROVIDERS: Emergency Provider Student in an Organized Health Care Education/Training Program; PCP Physician Assistant
DX: M79.675 Pain in left toe(s) (principal); J30.1 Allergic rhinitis due to pollen; S90.112A Contusion of left great toe without damage to nail, initial encounter; X58.XXXA Exposure to other specified factors, initial encounter; Y93.89 Activity, other specified; Y92.9 Unspecified place or not applicable; Y99.9 Unspecified external cause status; I10 Essential (primary) hypertension; K21.9 Gastro-esophageal reflux disease without esophagitis
CPT/HCPCS: 73630; 99281; 99283

== ENCOUNTER 2024-01-31 10:38 | Outpatient (AMB) | payer OTHER, SELFPAY ==
--- NOTE | 2024-01-31 11:05 | MHC.PC.OV ---
Vital Signs 01/31/24 11:06 Height 5 ft 7 in Weight 214 lb BMI 33.5 BP 100/58 L Blood Pressure Location Lt brachial Position Sitting Pulse 57 Pulse Source Pulse Oximeter Pulse Oximetry (%) 98 Oxygen Delivery Method Room Air Intake Visit Reasons: follow up Intake Note: Routine follow-up visit. Patient presents with concerns of nasal congestion and a mild cough persisting for the past week. [employer]ician Required: No Accompanied by: Self / Same As Patient Allergies loratadine [From Claritin] Adverse Reaction (Verified 01/31/24 11:28) TACHYCARDIA Medication List - Last Reconciled 01/31/24 by Deandre Chen PA-C blood pressure kit-extra large As directed cetirizine (Zyrtec) 10 mg PO DAILY 90 days clotrimazole 1% 1 appl topical BID 15 days naproxen 500 mg PO BID 30 days omeprazole 20 mg PO DAILY 90 days trazodone 50 mg PO BEDTIME 90 days Tobacco use date assessed: 01/31/24 Dental Screening Dental Screen Date: 03/05/23 HPI follow up HPI Details Patient is a 43-year-old male here today for follow-up visit. Patient has a past medical history significant for morbid obesity, anxiety depression, hyperlipidemia, hypertension. Currently working full-time job and has his own apartment. He is no longer homeless .. Allergic rhinitis: He reports he continues to allergy type symptoms with runny nose and sinus congestion. He reports over last few weeks his allergy symptoms have gotten a bit worse. He is also noted a widespread itchy dry rash over his arms and legs and torso. He has not changed in the of his detergents, soaps or shampoos. PLAN: I suspect he has eczema flare thus will try a prednisone taper and topical steroid Obesity- has lost a significant amount of weight. PERCY: Patient does have history of obstructive sleep apnea. He was homeless for a while in lost his CPAP machine in storage. He reports he does not want to be re-evaluated for obstructive sleep apnea start using his CPAP machine again at this time. .. HTN:? Patient's blood pressure acceptable today in office. Patient not on any blood pressure medication at this time in his able to manage his blood pressure with diet and physical activity. Morbid obesity:?Has lost weight since last visit likely due to stress and being homeless. Is followed by [facility] weight management program and is anticipating bariatric surgery.? Major Depression: Was using trazodone in the past though felt it had a hangover effect in the mornings. Has stopped using trazodone. He feels his mental health is much better since having a full-time stable drive in an apartment. [facility] Medical History PERCY (obstructive sleep apnea) Vitamin D deficiency Vitamin B12 deficiency DJD (degenerative joint disease) Anxiety Depression Hyperlipidemia Morbid obesity Surgical History History of pilonidal cyst Family History Father Hepatocellular carcinoma Mother Hypertension Asthma Sister No problems noted. Sister No problems noted. Brother No problems noted. Brother No problems noted. Daughter No problems noted. Social History Housing: Apartment Alcohol intake: former Patient Tobacco Use Status: Former Tobacco user e-Cigarette/Vaping Use: Never Used Second Hand Smoke Exposure: No service: No Current occupational status: disabled Current occupation: [employer] Cognitive needs: No Hearing needs: No Vision needs: No Questionnaire Thrive Questionnaire Date Thrive assessed: 03/05/23 MONTY-7 AMB Questionnaire MONTY-7 Date MONTY - 7 assessed: 03/05/23 Source: Developed by Drs. Bg Galdamez, Laverne Alas, Yohannes Stewart and colleagues, with an educational gold from [employer]. Review of Systems Const Denies headache(s) Eyes Denies loss of vision ENT Denies vertigo, Denies dizziness, Denies headache(s), Reports nasal congestion, Denies nasal discharge, Reports post nasal drip, Reports sinus pressure and Denies sore throat Card Denies chest pain, Denies leg edema and Denies lightheadedness Resp Denies cough, Denies hemoptysis and Denies wheezing GI Denies abdominal pain, Denies melena, Denies constipation, Denies diarrhea and Denies vomiting Denies dysuria, Denies urinary frequency and Denies urinary urgency Musc Denies arthralgias, Denies joint swelling, Denies numbness and Denies tingling Neuro Denies Abnormal speech present, Denies behavioral changes, Denies vertigo, Denies dizziness, Denies headache(s), Denies loss of vision, Denies memory loss, Denies numbness and Denies tingling Psych Denies anxiety, Denies behavioral changes, Denies depression, Denies memory loss and Denies panic attacks Moise/Lymph Denies easy bleeding and Denies easy bruising Aller/Immun Denies wheezing Physical exam (Primary Care) Vital Signs: Last Vital Signs Pulse 57 01/31/24 11:06 BP 100/58 L 01/31/24 11:06 Pulse Ox 98 01/31/24 11:06 Oxygen Delivery Method Room Air 01/31/24 11:06 BMI result Body Mass Index 33.5 Tobacco/Smoking Status: Tobacco use Status Tobacco use date assessed 01/31/24 01/31/24 11:12 Patient Tobacco Use Status Former Tobacco user 01/31/24 11:08 e-Cigarette/Vaping Use Never Used 01/31/24 11:08 Thrive Assessment: Date of Thrive Assessment Date Thrive assessed 03/05/23 01/31/24 11:08 Const General: healthy appearing, no acute distress, alert and awake Nutritional Appearance: well nourished Orientation/consciousness: oriented to person, oriented to place and oriented to time HENMT Ears: TM's normal bilaterally General nose exam: Normal nasal mucous membranes and turbinates present Eyes Conjunctivae: conjunctivae normal Sclerae: sclerae normal Pupils: Equal, round and reactive pupils present Neck Neck: Yes no lymphadenopathy and Yes no JVD Thyroid: Thyroid normal Carotids: no bruits Resp Effort & Inspection: normal respiratory effort and not tachypneic Auscultation: no crackles, no rales, no rhonchi and no wheezes Cardio Rate: regular rate Rhythm: regular rhythm Heart sounds: no murmurs and normal S1 and S2 GI Palpation (GI): Soft to palpation, nontender, no hepatomegaly and no splenomegaly Auscultation: normal bowel sounds Skin Other: WIDESPREAD DRY APPEARING RASH OVER LEGS, ARMS AND TORSO General skin exam: rashes and/or lesions noted and dry skin Neuro General: oriented to person, oriented to place and oriented to time Cranial nerves: Yes Equal, round and reactive pupils present Speech: No Abnormal speech present Gait exam (Neuro): Normal gait present Motor exam (neuro): no tremor noted Extrem Right upper extremity: full ROM Left upper extremity: full ROM Right lower extremity: full ROM; no edema Left lower extremity: full ROM; no edema Psych Mental Status: mental status grossly normal Speech and movement: Normal speech and movement present Affect: normal affect Attitude: cooperative Thought process: Normal thought process present Office Procedures Flu Questionnaire Does the patient have a severe egg allergy?: No Does the patient have severe life threatening allergies?: No Does the patient have a fever or illness today?: Yes Has the patient ever had Guillain-Tipton Syndrome?: No Has the patient ever had any past reaction to a flu shot?: No Immunizations Fluarix Triv [id number] (PF) 45 mcg (15 mcg x 3)/0.5 mL IM syringe Performing Provider: Deandre Chen PA-C [facility] Administered by: SADIQ Carney on 01/31/24 11:16 Dose Route Admin Location Dispensed Lot Number Expiration Date [facility] [place] Med Surg 0.5 mL IM Left Deltoid 0.5 mL [id number] 08/18/24 [id number] [place] VIS Given Date VIS Provided VIS Publication Date 01/31/24 Single Vaccine 20 Eligibility Eligibility Date Funding Source Not [facility] Eligible 01/31/24 Private Coding Level of Care Code Est Pt Level 4 (19122) Diagnoses Mixed hyperlipidemia E78.2 Hyperlipidemia type: mixed hyperlipidemia Primary hypertension I10 Hypertension type: primary hypertension Intrinsic eczema L20.84 Eczema type: intrinsic Allergic rhinitis due to other allergic trigger, unspecified seasonality J30.89 Allergic rhinitis seasonality: unspecified Allergic rhinitis trigger: other Assessment & Plan Assessment & Plan (1) Hyperlipidemia: Code(s): E78.5 - Hyperlipidemia, unspecified Category: Medical Qualifiers: Hyperlipidemia type: mixed hyperlipidemia Qualified Code(s): E78.2 - Mixed hyperlipidemia Plan: PATIENT HAS A HISTORY OF HYPERLIPIDEMIA. HAS NOT GOTTEN LABS IN QUITE SOME TIME. WILL RECHECK FASTING LIPID PANEL IN IF LDL ABOVE 190 WILL CONSIDER RESTARTING CHOLESTEROL MEDICATION. (2) HTN (hypertension): Code(s): I10 - Essential (primary) hypertension Category: Medical Qualifiers: Hypertension type: primary hypertension Qualified Code(s): I10 - Essential (primary) hypertension Plan: Patient's blood pressure on the low side today in office. Did have history of hypertension though is not on any medication at this time. He otherwise is asymptomatic without any syncopal episodes dizziness or fatigue. (3) Eczema: Code(s): L30.9 - Dermatitis, unspecified Category: Medical Qualifiers: Eczema type: intrinsic Qualified Code(s): L20.84 - Intrinsic (allergic) eczema Plan: Patient's skin manifestation most consistent with an eczema flare. Will supply patient with a prednisone taper and topical steroid to use on most problematic areas. Will start him back up on antihistamine therapy as he does also have allergic rhinitis as well. (4) Allergic rhinitis: Code(s): J30.9 - Allergic rhinitis, unspecified Category: Medical Qualifiers: Allergic rhinitis seasonality: unspecified Allergic rhinitis trigger: other Qualified Code(s): J30.89 - Other allergic rhinitis Plan: As above Orders: Orders Influenza [id number] Immunization Today Z23 - Encounter for immunization Medications: New triamcinolone acetonide 0.1% 1 appl topical DAILY 80 grams 1RF 30 days L30.9 - Dermatitis, unspecified fluticasone propionate 50 mcg/actuation (Flonase Allergy Relief) administer into each nostril 1 spray intranasal BID 16 grams 1RF 30 days J30.89 - Other allergic rhinitis prednisone Take 3 tablets x3 days, 2 tablets x3 days, 1 tablet x3 days 10 mg PO DIRECTED 18 tabs 0RF 9 days L30.9 - Dermatitis, unspecified Refilled cetirizine (Zyrtec) 10 mg PO DAILY 90 caps 2RF allergy symptoms 90 days J30.89 - Other allergic rhinitis Discontinued trazodone Discontinued Reason: Doctor's Order 50 mg PO BEDTIME 90 days 90 tabs 1RF F32.1 - Major depressive disorder, single episode, moderate
[2024-01-31 11:06] VITALS: BP 100/58; PULSE 57; O2SAT 98; BMI 33.5
== END 2024-01-31 11:39 | disposition home or self-care (01) ==
PROVIDERS: PCP Physician Assistant; Visit Provider Physician Assistant
DX: E78.2 Mixed hyperlipidemia (principal); I10 Essential (primary) hypertension; L20.84 Intrinsic (allergic) eczema; J30.89 Other allergic rhinitis; Z23 Encounter for immunization

== ENCOUNTER → 2024-01-31 10:38 | Outpatient (BNVA) | payer OTHER, SELFPAY | PROVIDERS: PCP Physician Assistant; Visit Provider Physician Assistant | DX: Z23 Encounter for immunization (principal); E78.2 Mixed hyperlipidemia; I10 Essential (primary) hypertension; L20.84 Intrinsic (allergic) eczema; J30.89 Other allergic rhinitis | CPT/HCPCS: 90471; 90656; 99212 ==

== ENCOUNTER 2024-09-01 10:33 | Emergency (ER) | payer OTHER, SELFPAY ==
--- NOTE | ~2024-09-01 | CT_ITS ---
EXAMINATION: CT ABDOMEN AND PELVIS WITH CONTRAST CLINICAL INFORMATION: Epigastric pain. COMPARISON: None available. TECHNIQUE: Multidetector volumetric images were obtained from the superior aspect of the liver through the pubic symphysis following administration 85 mL of Omnipaque 350 intravenous contrast. Sagittal and coronal reformatted images were obtained on the technologist's workstation. Oral contrast: No This CT examination was performed using dose optimization techniques as appropriate, variously including the following: *Automated exposure control *Adjustment of mA and/or kV according to patient size (this includes techniques or standardized protocols for targeted exams where dose is matched to indication/reason for exam; i.e. extremities or head) *Use of iterative reconstruction technique DLP: 800 mGy centimeter FINDINGS: LUNG BASES: No acute airspace disease. LIVER, GALLBLADDER, AND BILIARY TREE: Liver measures 18 cm. Focal fatty infiltration adjacent to the falciform ligament. No focal mass. 6 cm hypodensity in the periphery lower right hepatic lobe. No pericholecystic fluid collection or gallbladder wall thickening. No intrahepatic or extrahepatic biliary ductal dilatation. Gallbladder is contracted. PANCREAS: Fatty infiltration. No peripancreatic fluid collection. No main pancreatic ductal dilatation. SPLEEN: 11 cm. No focal lesion. Small accessory spleen. ADRENAL GLANDS: No nodular lesions. KIDNEYS AND URETERS: No hydronephrosis. No gross nephrolithiasis. Subcentimeter cyst. No focal renal mass. Normal enhancement pattern renal cortex. BLADDER: Fluid-filled. GASTROINTESTINAL TRACT: Abundant stool. Scattered diverticula in the left hemicolon. Gas and fluid-filled nonspecific prominent small bowel loops with small appearance of the distal ileal loops. Appendix is normal. No pneumatosis intestinalis. No pneumoperitoneum. No ascites. No intestinal wall thickening. ABDOMINAL WALL: Small tiny fat-containing umbilical hernia. LYMPH NODES: No specific prominent mesenteric. VASCULAR: No aneurysm or dissection, abdominal aorta. PELVIC VISCERA: Not enlarged prostate gland. OSSEOUS STRUCTURES: Multilevel thoracolumbar spondylosis. No gross acute fracture or listhesis. No lytic or blastic lesions. CT/CT abdomen pelvis w IV con IMPRESSION: Probable mild enteritis. Diverticular disease, left hemicolon. Hepatomegaly. Subcentimeter hypodensity right hepatic lobe, statistically may represent cyst versus hemangioma. Pancreatic steatosis/lipomatosis. This could be seen patients with diabetes, metabolic syndrome among other etiologies.. Fleischner guidelines were followed. Electronically signed by: Pablo Patrick MD 09/01/2024 03:35 PM EDT RP
[2024-09-01 10:45] VITALS: BP 110/68; PULSE 56; RESP 16; TEMP 36.4; O2SAT 98; BMI 39.1
--- NOTE | 2024-09-01 11:35 | ED_ITS ---
HPI - Abdominal Pain General Chief Complaint: Abdominal Pain Stated Complaint: stomach issue Time Seen by Provider: 09/01/24 14:43 Source: patient Mode of arrival: ambulatory Limitations: no limitations History of Present Illness ED Provider: Raina Person PA-C HPI narrative: Patient is a 44 year old male with past medical history of HTN, HLD, GERD, H. pylori, eczema, obstructive sleep apnea, vitamin D and B12 deficiency, anxiety, and depression, presents to the ER on 09/01 with chief complaint of intermittent epigastric and RLQ pain that has been occurring intermittently for the past 13- 14 months. The pain has been increasing in intensity for the past 2 months and has been associated with nausea and dizziness. Timing of the pain is not associated with eating. He denies loss of consciousness, vomiting, diarrhea, hematochezia, melena, chest pain, shortness of breath, or any other symptoms. He still has his appendix. He drinks daily, either 2 beers or 2 nips per day and has never experienced withdrawal seizures. He smokes marijuana a few times per week. He uses cocaine 2-3 times per year. He has remote smoking history; he quit when he was 16 years old. He denies regular use of NSAIDs. He states he does not take any medications for GERD symptoms and the only medication he takes currently is loratidine. MD elicited complaint: abdominal pain Exacerbating factors: nothing Relieving factors: nothing Related Data Previous Rx's ?Medication ?Instructions ?Recorded clotrimazole 1 % topical cream 1 appl topical BID 15 d ays #45 02/09/21 grams naproxen 500 mg tablet 500 mg PO BID 30 days #60 ta bs 02/09/21 omeprazole 20 mg capsule,delayed 20 mg PO DAILY 90 day s #90 caps 05/10/21 release blood pressure kit-extra large #1 ea 03/05/23 cetirizine 10 mg capsule (Zyrtec) 10 mg PO DAILY aller gy symptoms 90 01/31/24 days #90 caps prednisone 10 mg tablet 10 mg PO DIRECTED 9 days #18 01/31/24 tabs triamcinolone acetonide 0.1 % 1 appl topical DAILY 30 days #80 01/31/24 topical cream grams fluticasone propionate 50 1 spray intranasal BID 30 da ys #16 07/28/24 mcg/actuation nasal grams spray,suspension (Flonase Allergy Relief) Allergies Allergy/AdvReac Type Severity Reaction Status Date / Time loratadine (From Claritin) AdvReac TACHYCARDIA Verified 09/01/24 10:46 Review of Systems Constitutional: Reports no additional constitutional complaints, Denies chills, Denies fever(s) and Denies night sweats Eyes: Reports no additional eye complaints, Denies blurry vision, Denies change in vision, Denies diplopia, Denies eye discharge, Denies loss of vision and Denies eye pain Denies dizziness Cardiovascular: Reports no additional cardiovascular complaints, Denies chest pain, Denies lightheadedness, Denies Loss of Consciousness and Denies dyspnea Respiratory: Reports no additional respiratory complaints and Denies dyspnea Gastrointestinal: Reports no additional gastrointestinal complaints, Reports abdominal pain, Denies melena, Denies hematochezia, Denies change in bowel habits, Denies change in stool character and Denies vomiting Genitourinary: Reports no additional male genitourinary complaints, Denies hematuria, Denies oliguria, Denies difficulty urinating, Denies dysuria, Denies urinary frequency, Denies urinary hesitancy, Denies urinary incontinence and Denies urinary urgency Musculoskeletal: Reports no additional musculoskeletal complaints, Denies numbness and Denies tingling Denies dizziness, Denies loss of vision, Denies numbness and Denies tingling Psychiatric: Reports no additional psychiatric complaints Endocrine: Reports no additional endocrine complaints Hematologic/Lymphatic: Reports no additional hematologic/lymphatic complaints Allergic/Immunologic: Reports no additional allergic/immunologic complaints PMFSH Past Medical History Attestation statement: The following information was validated with the patient. Source: old records reviewed and nursing notes reviewed Medical History PERCY (obstructive sleep apnea) Vitamin D deficiency Vitamin B12 deficiency DJD (degenerative joint disease) Anxiety Depression Hyperlipidemia Morbid obesity Surgical History History of pilonidal cyst Family History Family History Father Hepatocellular carcinoma Mother Hypertension Asthma Sister No problems noted. Sister No problems noted. Brother No problems noted. Brother No problems noted. Daughter No problems noted. Social History Social History Housing: Apartment Alcohol intake: current Alcohol intake frequency: a few times a week Alcohol type: beer and hard liquor Patient Tobacco Use Status: Former Tobacco user Smoked in Last 30 Days: Yes e-Cigarette/Vaping Use: Never Used Second Hand Smoke Exposure: No Use of substances other than those prescribed or required for medical reasons: Yes Substance Use Type: Marijuana Substance Use Frequency: Daily Advance Directives: No Advance Directives Information Provided: Yes Do you have a plan to hurt others: No Plan service: No Current occupational status: disabled Current occupation: [employer] Cognitive needs: No Hearing needs: No Vision needs: No Physical Exam ED Vital Signs: Vital Signs - 24 hr 09/01/24 10:45 09/01/24 15:35 09/01/24 17:03 Temperature 97.6 F 97.2 F 97.2 F Pulse Rate 56 51 51 Respiratory Rate 16 14 14 Blood Pressure 110/68 114/73 114/73 Pulse Oximetry 98 97 97 Oxygen Delivery Method Room Air Room Air Room Air BMI result Body Mass Index 39.1 Const General: cooperative, no acute distress, alert and awake Nutritional Appearance: well nourished Orientation/consciousness: patient oriented x3 HENMT Head: Yes normal to inspection and Yes atraumatic Ears: hearing grossly normal bilaterally and external ears normal General nose exam: Normal external nose present, no nasal discharge noted and no epistaxis Face and sinus: Yes normal facial exam, No abrasion and No laceration Mouth: Normal oral and palatal mucosa present, no drooling and no muffled voice Eyes General: appearance normal, both eyes and all related structures Periorbital: periorbital findings normal Eyelids: Yes eyelids normal Conjunctivae: conjunctivae normal Pupils: Equal, round and reactive pupils present EOM: EOMs intact bilaterally Neck Neck: Yes normal visual inspection, Yes full ROM and Yes no lymphadenopathy Resp Effort & Inspection: normal respiratory effort and able to speak in complete sentences GI Palpation (GI): Soft to palpation, not firm, nontender, no guarding and not rigid Neuro General: patient oriented x3, moves all extremities and CN's II-XI intact bilaterally Cranial nerves: Yes Equal, round and reactive pupils present Cognition (Neuro): normal cognition Extrem General: Yes normal to inspection, Yes full ROM and Yes capillary refill normal Psych Appearance: grossly normal Mental Status: mental status grossly normal Affect: normal affect Attitude: cooperative Thought process: Normal thought process present Thought content: Normal thought content present Insight: Good insight present (Psych) Course Course Course Narrative: 09/01/24 1136 CHARLENE Mascorro This is a Rapid Medical Examination (RME) performed by Venkat Angel PA-C in triage. Full HPI, ROS, assessment and treatment plan per primary provider in the Main ED. Hx: 44 yo M here for eval of abd pain to RUQ/RLQ, sharp, feels a ball in his upper abdomen x1 year. increasing pain x1 mo. No N/V/D. admits to etoh consumption, 4-5 beers daily + a few nips. last drink yesterday. no hx withdrawal/seizures. still has gallbladder. Plan: labs Medical Decision Making Medical Decision Making [facility] Narrative: Patient is a 44 year old assigned male at with a history of HTN, HLD, GERD, H. pylori, eczema, obstructive sleep apnea, vitamin D and B12 deficiency, anxiety, and depression presenting to the emergency department today with abdominal pain. Patient's physical exam was unremarkable. Patient's blood work was unremarkable. Patient's EKG was unremarkable. Patient's CT abd/pelvis showed enteritis, diverticular disease, hepatomegaly, and pancreatic steatosis. Patient's clinical presentation is most consistent with enteritis. I explained my physical exam findings as well as all test results to the patient. I answered all questions asked by the patient. Patient received IV moprhine, Zofran, protonix, and PO curafate which, upon re-evaluation, he stated it helped his symptoms significantly. I stressed the importance of the patient taking his medication as directed (either prescribed or as the over the counter packaging recommends). I stressed the importance of the patient following up with his primary care provider. I stressed the importance of the patient returning to the emergency department immediately if his symptoms were to worsen or if he were to develop any dizziness, shortness of breath, difficulty breathing, chest pain, blurry vision, loss of vision, nausea, vomiting, abdominal pain, fever, chills, back pain, or any other complaints. Patient verbalized agreement and understanding with this treatment plan and discharge. Differential Diagnosis Differential Diagnoses: The differential diagnosis associated with the presentation includes Enteritis Abdominal pain Colitis GERD Appendicitis Admission/Observation Consideration of admission/observation: Escalation of care including admission/observation considered Patient would have been admitted to the hospital had his work up had any findings where hospital admission was appropriate and his clinical presentation warranted hospital admission. Lab Data [facility] Lab Attestation statement: I reviewed the patient's lab results. My interpretation of these results are in the MDM Rationale portion of this note. 09/01/24 11:52 09/01/24 11:52 Labs: Lab Results 09/01/24 Range/Units 11:52 WBC 6.6 (4.8-10.8) X10*3/uL RBC 4.41 L (4.60-5.80) X10*6/uL Hgb 14.0 (14.0-18.0) g/dl Hct 41.2 L (42.0-52.0) % MCV 93.4 (80.0-98.0) fL MCH 31.7 (27.0-33.0) pg MCHC 34.0 (31.0-36.0) g/dl RDW 12.9 (11.0-16.0) % Plt Count 212 (160-400) X10*3/uL MPV 10.2 (9.4-12.4) fL Immature Gran % (Auto) 0.2 (0.0-0.4) % Neut % (Auto) 64.3 (45-73) % Lymph % (Auto) 20.4 (20-40) % [place] % (Auto) 8.2 (2-11) % Eos % (Auto) 6.3 H (0-4) % Baso % (Auto) 0.6 (0-2) % Lymph # (Auto) 1.3 (1.2-4.9) X10*3/uL [place] # (Auto) 0.5 (0.1-1.2) X10*3/uL Eos # (Auto) 0.4 (0.0-0.4) X10*3/uL Baso # (Auto) 0.0 (0.0-0.2) X10*3/uL Abs Immat Gran (auto) 0.01 (0.00-0.03) X10*3/uL Absolute Neuts (auto) 4.2 (2.0-8.3) x10*3/uL Absolute Nucleated RBC 0.000 (0.0-0.012) X10*3/uL Nucleated RBC % (auto) 0.0 (0.0-0.2) /100WBC Sodium 142 (135-145) mmol/L Potassium 4.3 (3.3-5.1) mmol/L Chloride 111 H (96-108) mmol/L Carbon Dioxide 26 (22-29) mmol/L Anion Gap 9 L (12-20) BUN 13 (9-16) mg/dL Creatinine 0.85 (0.5-1.4) mg/dL Estim Creat Clear Calc 140.4 Estimated GFR > 60 Random Glucose 96 (60-115) mg/dL Calcium 8.6 D (8.4-10.2) mg/dL Magnesium 2.0 (1.6-2.6) mg/dL Total Bilirubin 0.3 (0.0-1.0) mg/dL AST 22 (5-37) U/L ALT 14 (0-40) U/L Alkaline Phosphatase 50 (39-117) U/L Total Creatine Kinase 129 (38-174) U/L Total Protein 6.7 (6.5-8.0) g/dL Albumin 4.1 (3.5-5.0) g/dL Lipase 12 (8-78) U/L Ethyl Alcohol < 10 mg/dL Independent Interpretation I performed an independent interpretation of an: CT Scan Interpretation: My interpretation is in agreement with the radiologist's impression of this imaging study. L Report Number: [id number]: Total DLP = 800.00 mGy-cm EXAMINATION: CT ABDOMEN AND PELVIS WITH CONTRAST CLINICAL INFORMATION: Epigastric pain. COMPARISON: None available. TECHNIQUE: Multidetector volumetric images were obtained from the superior aspect of the liver through the pubic symphysis following administration 85 mL of Omnipaque 350 intravenous contrast. Sagittal and coronal reformatted images were obtained on the technologist's workstation. Oral contrast: No This CT examination was performed using dose optimization techniques as appropriate, variously including the following: *Automated exposure control *Adjustment of mA and/or kV according to patient size (this includes techniques or standardized protocols for targeted exams where dose is matched to indication/reason for exam; i.e. extremities or head) *Use of iterative reconstruction technique DLP: 800 mGy centimeter FINDINGS: LUNG BASES: No acute airspace disease. LIVER, GALLBLADDER, AND BILIARY TREE: Liver measures 18 cm. Focal fatty infiltration adjacent to the falciform ligament. No focal mass. 6 cm hypodensity in the periphery lower right hepatic lobe. No pericholecystic fluid collection or gallbladder wall thickening. No intrahepatic or extrahepatic biliary ductal dilatation. Gallbladder is contracted. PANCREAS: Fatty infiltration. No peripancreatic fluid collection. No main pancreatic ductal dilatation. SPLEEN: 11 cm. No focal lesion. Small accessory spleen. ADRENAL GLANDS: No nodular lesions. KIDNEYS AND URETERS: No hydronephrosis. No gross nephrolithiasis. Subcentimeter cyst. No focal renal mass. Normal enhancement pattern renal cortex. BLADDER: Fluid-filled. GASTROINTESTINAL TRACT: Abundant stool. Scattered diverticula in the left hemicolon. Gas and fluid-filled nonspecific prominent small bowel loops with small appearance of the distal ileal loops. Appendix is normal. No pneumatosis intestinalis. No pneumoperitoneum. No ascites. No intestinal wall thickening. ABDOMINAL WALL: Small tiny fat-containing umbilical hernia. LYMPH NODES: No specific prominent mesenteric. VASCULAR: No aneurysm or dissection, abdominal aorta. PELVIC VISCERA: Not enlarged prostate gland. OSSEOUS STRUCTURES: Multilevel thoracolumbar spondylosis. No gross acute fracture or listhesis. No lytic or blastic lesions. CT/CT abdomen pelvis w IV con IMPRESSION: Probable mild enteritis. Diverticular disease, left hemicolon. Hepatomegaly. Subcentimeter hypodensity right hepatic lobe, statistically may represent cyst versus hemangioma. Pancreatic steatosis/lipomatosis. This could be seen patients with diabetes, metabolic syndrome among other etiologies.. Fleischner guidelines were followed. Electronically signed by: Pablo Patrick MD 09/01/2024 03:35 PM EDT Dictated By: Pablo Lundberg MD Signed By: Electronically signed by Pablo Neff MD 09/01/24 1535 Radiology Impression Discussion of test interpretation with radiology: I have reviewed the radiologist's reading. External Record Review External record reviewed: Office record and Outpatient record Medications Administered Discontinued Medications Generic Name Dose Route Start Last Admin Trade Name Freq PRN Reason Stop Dose Admin Sodium Chloride 1,000 mls @ 999 mls/hr 09/01/24 15:00 09/01/24 16:45 Ns IV 09/01/24 16:00 Infused .Q1H1M CHOLO Infusion Iohexol 100 ml 09/01/24 15:11 09/01/24 15:13 Iohexol 350 Mg/Ml 100 Ml Infus..Btl IV 09/01/24 15:12 85 ml ONCE ONE Administration Morphine Sulfate 4 mg 09/01/24 14:56 09/01/24 15:23 Morphine Sulfate 4 Mg/Ml Cartridge IVPUSH 09/01/24 14:57 4 mg ONCE ONE Administration Protocol Ondansetron HCl 4 mg 09/01/24 14:56 09/01/24 15:23 Ondansetron Hcl 4 Mg/2 Ml Vial IVPUSH 09/01/24 14:57 4 mg ONCE ONE Administration Pantoprazole Sodium 40 mg 09/01/24 15:05 09/01/24 15:33 Pantoprazole Sodium 40 Mg/10 Ml Vial IVPUSH 09/01/24 15:06 40 mg ONCE ONE Administration Sucralfate 1 gm 09/01/24 15:09 09/01/24 15:33 Sucralfate Oral Suspension 1 Gm/10 Ml Oral.Susp PO 09/01/24 15:10 1 gm ONCE ONE Administration Critical Care Time Critical Care Time Critical Care Time: Yes Total Critical Care Time: 36 Attestation: I spent 36 minutes of Critical Care Time with this patient. This does not include time spent on separately reported billable procedures. Discharge Plan Discharge Clinical Impression: Enteritis Abdominal pain Qualifiers: Abdominal location: generalized Qualified Code(s): R10.84 - Generalized abdominal pain Patient Disposition: Home, Self-Care Instructions: Abdominal Pain (ED), Enteritis (ED) Additional Instructions: Your CT scan showed enteritis which I believe to be the cause of your pain however, there were also incidental (accidental) findings that your primary care provider should follow up on: Diverticular disease Hepatomegaly Subcentimeter hypodensity in the right hepatic lobe (liver lobe) consistent with cyst vs. hemangioma (not cancer) Pancreatic steatosis / lipomatosis Follow up with your primary care provider. Return to the emergency department immediately if your symptoms worsen or if you develop any numbness, tingling, dizziness, shortness of breath, difficulty breathing, chest pain, blurry vision, loss of vision, nausea, vomiting, abdominal pain, fever, chills, back pain, or any other complaints. Please see the information below about our Patient Portal. If you are not yet enrolled in the [facility] Patient Portal, you will receive an enrollment email invitation following your visit to any [facility] setting. You may also self-enroll in the Patient Portal by visiting our website: [email or web address] The following information is required to access the Patient Portal: - Your [facility] Medical Record Number - Your personal home email address (must match what is in your electronic medical record, Registration staff can assist with this) - Name - Date of Capabilities of the Patient Portal: - Message some providers - View upcoming appointments - Access your health summary, medical history, and visit history - View current conditions and allergies - View procedure and lab results - View your medications, including guidelines, side effects, and precautions - Complete pre-appointment questionnaires requested by your provider - Ready summary reports of your office visits and procedures To access the Patient Portal Mobile [employer], follow these directions: - Search [employer] in the [employer] Store or [employer] Store - Download the [employer] - Search for [facility] - Enter your login/password Prescriptions: No Action fluticasone propionate [Flonase Allergy Relief] 50 mcg/actuation spray,suspension 1 spray intranasal BID 30 Days Qty: 16 1RF Rx Instructions: administer into each nostril clotrimazole 1 % cream 1 appl topical BID 15 Days Qty: 45 0RF naproxen 500 mg tablet 500 mg PO BID 30 Days Qty: 60 3RF omeprazole 20 mg capsule,delayed release(DR/EC) 20 mg PO DAILY 90 Days Qty: 90 1RF (DME) blood pressure kit-extra large Kit See Rx Instructions .Route Qty: 1 0RF Rx Instructions: As directed triamcinolone acetonide 0.1 % cream 1 appl topical DAILY 30 Days Qty: 80 1RF prednisone 10 mg tablet 10 mg PO DIRECTED 9 Days Qty: 18 0RF Rx Instructions: Take 3 tablets x3 days, 2 tablets x3 days, 1 tablet x3 days Zyrtec 10 mg capsule 10 mg PO DAILY 90 Days Qty: 90 2RF Referrals: Deandre Chen PA-C [Primary Care Provider, Internal Medicine] Stand Alone Forms: Work/School Release Interventions: ED Discharge Assessment Last Done: 09/01/24 17:03 Discharge Date/Time: 09/01/24 17:05 Print Language: Indonesian
[2024-09-01 12:01] LABS: MANUAL DIFF FLAG NO
[2024-09-01 12:03] LABS: Hematocrit 41.2 % (42.0-52.0); Hemoglobin 14.0 g/dl (14.0-18.0); Imm Gran Abs Auto 0.01 X10*3/uL (0.00-0.03); Imm Gran Pct Auto 0.2 % (0.0-0.4); Lymphocytes Absolute Auto 1.3 X10*3/uL (1.2-4.9); Mean Corpuscular HGB Conc 34.0 g/dl (31.0-36.0); Mean Corpuscular Hemoglobin 31.7 pg (27.0-33.0); Mean Corpuscular Volume 93.4 fL (80.0-98.0); NRBC Abs Auto 0.000 X10*3/uL (0.0-0.012); NRBC Pct Auto 0.0 /100WBC (0.0-0.2); Platelet Count 212 X10*3/uL (160-400); Red Blood Count 4.41 X10*6/uL (4.60-5.80); White Blood Count 6.6 X10*3/uL (4.8-10.8)
[2024-09-01 12:23] LABS: Alanine Aminotransferase 14 U/L (0-40); Albumin Level 4.1 g/dL (3.5-5.0); Alkaline Phosphatase 50 U/L (39-117); Anion Gap 9 (12-20); Aspartate Amino Transferase 22 U/L (5-37); Blood Urea Nitrogen 13 mg/dL (9-16); Calcium 8.6 mg/dL (8.4-10.2); Carbon Dioxide 26 mmol/L (22-29); Chloride 111 mmol/L (96-108); Creatinine Clr Calc Pharmacy 140.4; Estimated Glomerular Filt Rate > 60; Lipase 12 U/L (8-78); Magnesium 2.0 mg/dL (1.6-2.6); Potassium 4.3 mmol/L (3.3-5.1); Sodium 142 mmol/L (135-145); Total Protein 6.7 g/dL (6.5-8.0)
[2024-09-01] MEDS: iohexoL 350 MG/ML 100 ML INFUS..BTL IV (15:13)
[2024-09-01] MEDS: Sucralfate Oral Suspension 1 GM/10 ML ORAL.SUSP PO (15:33)
[2024-09-01 15:35] VITALS: BP 114/73; PULSE 51; RESP 14; TEMP 36.2; O2SAT 97
[2024-09-01 17:03] VITALS: BP 114/73; PULSE 51; RESP 14; TEMP 36.2; O2SAT 97
== END 2024-09-01 17:05 | disposition home or self-care (01) ==
PROVIDERS: Physician Assistant Medical; Emergency Provider Emergency Medicine; PCP Physician Assistant
DX: K52.9 Noninfective gastroenteritis and colitis, unspecified (principal); R10.13 Epigastric pain; R10.31 Right lower quadrant pain; R16.0 Hepatomegaly, not elsewhere classified; E88.89 Other specified metabolic disorders; E88.2 Lipomatosis, not elsewhere classified; I10 Essential (primary) hypertension; E78.5 Hyperlipidemia, unspecified; E53.8 Deficiency of other specified B group vitamins; E55.9 Vitamin D deficiency, unspecified; R11.2 Nausea with vomiting, unspecified; K21.9 Gastro-esophageal reflux disease without esophagitis; K42.9 Umbilical hernia without obstruction or gangrene
CPT/HCPCS: 36415; 74177; 80053; 80307; 82550; 83690; 83735; 85025; 96361; 96374; 96375; 99284; 99285; 99291; J2270; J2405; J2470; Q9967

== ENCOUNTER → 2024-09-01 14:56 | Outpatient (BNV) | payer OTHER, SELFPAY | PROVIDERS: Emergency Provider Emergency Medicine; PCP Physician Assistant; Visit Provider Radiology Diagnostic Radiology | DX: K57.30 Diverticulosis of large intestine without perforation or abscess without bleeding (principal); R16.0 Hepatomegaly, not elsewhere classified; K86.89 Other specified diseases of pancreas | CPT/HCPCS: 74177 ==

== ENCOUNTER 2024-11-25 10:51 | Outpatient (AMB) | payer OTHER, SELFPAY ==
--- NOTE | 2024-11-25 11:24 | MHC.PC.OV ---
Vital Signs 11/25/24 11:27 Height 5 ft 9 in Weight 221 lb 4 oz BMI 32.7 BP 130/60 Blood Pressure Location Lt brachial Position Sitting Pulse 56 Pulse Source Pulse Oximeter Temp 97.3 F Temp Source Temporal Artery Scan Pulse Oximetry (%) 97 Oxygen Delivery Method Room Air Intake Visit Reasons: annual exam Intake Note: Patient is here today for a physical. Assistant Cook Required: No Director Of Clinical Trials: Not Required per policy Accompanied by: Self / Same As Patient Allergies loratadine (From Claritin) Adverse Reaction (Verified 11/25/24 11:49) TACHYCARDIA Medication List - Last Reconciled 11/25/24 by Deandre Chen PA-C blood pressure kit-extra large As directed fluticasone propionate 50 mcg/actuation (Flonase Allergy Relief) 1 spray intranasal BID 30 days naproxen 500 mg PO BID 30 days omeprazole 20 mg PO DAILY 90 days Tobacco use date assessed: 11/25/24 Dental Screening Dental Screen Date: 11/25/24 Did you have a dental visit in the last 12 months?: Yes Did you have a dental problem in the last 6 months where you did not have access to dental care?: No Was dental information given to patient?: Patient has dentist HPI annual exam HPI Details Patient is a 44-year-old male here today for an annual physical. Patient has a past medical history significant for morbid obesity, anxiety depression, hyperlipidemia, hypertension. Currently working full-time job and has his own apartment. He is no longer homeless Concern--> Shortness of breath: He reports experiencing shortness of breath and fatigue when climbing stairs, which has been ongoing for the past six months. The patient has a history of a lung test conducted five to seven years ago, which indicated normal lung function at that time. .. Allergic rhinitis: He reports he continues to allergy type symptoms with runny nose and sinus congestion. Has tried cetirizine though has not noted any improvement. Also has been using Benadryl and noticed only a few hours of relief. PLAN: Patient willing to try a prescription montelukast to help him with his allergy symptoms. Class 1 obesity: Does understand his BMI is over 30 will work on being more physically active and adapting to better eating habits to reduce his weight. PERCY: Patient does have history of obstructive sleep apnea. He was homeless for a while in lost his CPAP machine in storage. He reports he does not want to be re-evaluated for obstructive sleep apnea start using his CPAP machine again at this time. .. HTN:? Patient's blood pressure acceptable today in office. Patient not on any blood pressure medication at this time in his able to manage his blood pressure with diet and physical activity. Morbid obesity:?Has lost weight since last visit likely due to stress and being homeless. Is followed by [facility] and is anticipating bariatric surgery.? Major Depression: He feels his mental health has been stable as he has a stable home in his working full-time. He has been having a lot of trouble sleeping thus is interested in restarting a sleeping medication. He reports trazodone caused him to much sleepiness in the past. Vaccine: Needs up-to-date flu vaccine, up-to-date with COVID, tetanus. Colon cancer screening : Willing to do colonoscopy [facility] Medical History (Updated 11/25/24 @ 12:21 by Deandre Chen PA-C) PERCY (obstructive sleep apnea) Vitamin D deficiency Vitamin B12 deficiency DJD (degenerative joint disease) Anxiety Depression Hyperlipidemia Surgical History History of pilonidal cyst Family History Father Hepatocellular carcinoma Mother Hypertension Asthma Sister No problems noted. Sister No problems noted. Brother No problems noted. Brother No problems noted. Daughter No problems noted. Social History Housing: Apartment Alcohol intake: current Alcohol intake frequency: holidays/special occasions only Alcohol type: beer and hard liquor Patient Tobacco Use Status: Former Tobacco user e-Cigarette/Vaping Use: Currently Using Second Hand Smoke Exposure: Yes Substance Use Type: Marijuana service: No Current occupational status: disabled Current occupation: [employer] Cognitive needs: No Hearing needs: No Vision needs: No Questionnaire PHQ-9 Over the last 2 weeks, how often have you been bothered by any of the following problems? 1. Little interest or pleasure in doing things: several days 2. Feeling down, depressed, or hopeless: several days 3. Trouble falling or staying asleep, or sleeping too much: nearly every day 4. Feeling tired or having little energy: nearly every day 5. Poor appetite or overeating: nearly every day 6. Feeling bad about yourself - or that you are a failure or have let yourself or your family down: not at all 7. Trouble concentrating on things, such as reading the newspaper or watching television: more than half the days 8. Moving or speaking so slowly that other people could have noticed. Or the opposite - being so fidgety or restless that you have been moving around a lot more than usual: several days 9. Thoughts that you would be better off or of hurting yourself in some way: not at all Total score: 14 Depression Screening Interpretation: Positive Depression Screening Follow-up: Existing condition and In treatment Depression Screening Done: Yes 36575 - PHQ-9 Billing: Yes Source: Developed by Drs. Bg Galdamez, Laverne Alas, Yohannes Stewart and colleagues, with an educational gold from [employer]. Thrive Questionnaire Date Thrive assessed: 11/25/24 I am a: Patient What is your living situation today?: I have a steady place to live Within the past 12 months, did the food you bought not last and you didn't have the money to get more?: Sometimes True Within the past 12 months, did you worry whether your food would run out before you got money to buy more?: Sometimes True Do you have trouble paying for medicines?: Yes Do you have trouble getting transportation to medical appointments?: No Do you have trouble paying your heating and electricity bill?: No Do you have trouble taking care of your child, family member or friend?: No Do you have trouble with day-to-day activities such as bathing, preparing meals, shopping, managing finances, etc.?: No Are you currently unemployed and looking for a job?: No Are you interested in more education?: No Please select the resources that you would like help with: None Currently or been in a relationship where the following occur: I choose not to answer THRIVE Score: 2 AUDIT C Alcohol Use Questionnaire (AUDIT-C) 1. How often do you have a drink containing alcohol?: Monthly or less 2. How many drinks containing alcohol do you have on a typical day when you are drinking?: 1 or 2 3. How often do you have six or more drinks on one occasion?: Never Total Score: 1 MONTY-7 AMB Questionnaire MONTY-7 Date MONTY - 7 assessed: 11/25/24 Feeling nervous, anxious, or on edge: 0 = Not at all Not being able to stop or control worryin = Not at all Worrying too much about different things: 0 = Not at all Trouble relaxin = Not at all Being so restless that it is hard to sit still: 0 = Not at all Becoming easily annoyed or irritable: 0 = Not at all Feeling afraid as if something awful might happen: 0 = Not at all Total MONTY-7 score (0-4 normal; 5-9 mild; 10-14 moderate; 15-21 severe): 0 Source: Developed by Drs. Bg Galdamez, Laverne Alas, Yohannes Stewart and colleagues, with an educational gold from [employer]. MONTY-7 Assessment Billing MONTY-7 Assessment Tool: MONTY-7 Assessment 79854 Review of Systems Const Denies excessive sweating, Denies fatigue and Denies headache(s) Eyes Denies loss of vision ENT Denies vertigo, Denies dizziness, Denies headache(s) and Denies sore throat Card Denies chest pain, Denies leg edema, Denies lightheadedness and Reports dyspnea on exertion Resp Denies cough, Denies hemoptysis, Reports dyspnea on exertion and Denies wheezing GI Denies abdominal pain, Denies melena, Denies constipation, Denies diarrhea and Denies vomiting Denies dysuria, Denies urinary frequency and Denies urinary urgency Musc Denies arthralgias, Denies joint swelling, Denies numbness and Denies tingling Skin/Breast Denies rash and Denies skin ulcer Neuro Denies Abnormal speech present, Denies behavioral changes, Denies vertigo, Denies dizziness, Denies headache(s), Denies loss of vision, Denies memory loss, Denies numbness and Denies tingling Psych Denies anxiety, Denies behavioral changes, Denies depression, Denies memory loss and Denies panic attacks Endo Denies excessive sweating, Denies fatigue, Denies flushing, Denies polydipsia and Denies polyuria Moise/Lymph Denies easy bleeding and Denies easy bruising Aller/Immun Denies wheezing Physical exam (Primary Care) Vital Signs: Last Vital Signs Temp 97.3 F 11/25/24 11:27 Pulse 56 11/25/24 11:27 BP 130/60 11/25/24 11:27 Pulse Ox 97 11/25/24 11:27 Oxygen Delivery Method Room Air 11/25/24 11:27 BMI result Body Mass Index 32.7 BMI Assessment/Plan discussion: High BMI High, discussed plan: lifestyle, weight reduction, dietary and physical activity Tobacco/Smoking Status: Tobacco use Status Tobacco use date assessed 11/25/24 11/25/24 11:37 Patient Tobacco Use Status Former Tobacco user 11/25/24 11:43 e-Cigarette/Vaping Use Currently Using 11/25/24 11:44 PHQ-9: PHQ-9 Score PHQ-9: Total score 14 11/25/24 11:50 Depression Screening Interpretation: Positive Depression Screening Follow-up: Existing condition and In treatment Thrive Assessment: Date of Thrive Assessment Date Thrive assessed 11/25/24 11/25/24 11:37 Currently or been in a relationship where the following occur: I choose not to answer Const General: healthy appearing, no acute distress, alert and awake Nutritional Appearance: well nourished Orientation/consciousness: oriented to person, oriented to place and oriented to time HENMT Head: Yes normocephalic Ears: TM's normal bilaterally General nose exam: Normal nasal mucous membranes and turbinates present Face and sinus: No sinus tenderness Mouth: Normal oral and palatal mucosa present and tongue normal Teeth and gingiva: dentition normal and gingiva normal Throat: Yes posterior oropharynx normal, Yes tonsils normal and Yes uvula midline Eyes Conjunctivae: conjunctivae normal Sclerae: sclerae normal Pupils: Equal, round and reactive pupils present EOM: EOMs intact bilaterally Direct Ophthalmoscopy: No no photophobia Neck Neck: Yes no lymphadenopathy and Yes no JVD Thyroid: Thyroid normal Carotids: no bruits Chest Chest palpation & inspection: no tenderness Resp Effort & Inspection: normal respiratory effort and not tachypneic Auscultation: no crackles, no rales, no rhonchi and no wheezes Cardio Jugular venous distension: no JVD Rate: regular rate Rhythm: regular rhythm Heart sounds: no murmurs and normal S1 and S2 Bruits: no carotid bruits Peripheral pulses: Peripheral pulses 2+ throughout GI Inspection: Yes normal to inspection, No abdominal wall ecchymosis and No visible herniation Palpation (GI): Soft to palpation, nontender, no hepatomegaly and no splenomegaly Auscultation: normal bowel sounds General: Yes no CVA tenderness Back/Spine/Pelvis Back: no CVA tenderness and No back tenderness Cervical Spine: cervical ROM normal Thoracic/Lumbar Spine: thoracic and lumbar spine normal to inspection, straight leg raise negative bilaterally, No thoraco-lumbar ROM limited and No lumbar spinal tenderness Skin General skin exam: no rashes or lesions noted and dry skin Lesions: no lesions Rashes: no rashes Wounds: no wounds Neuro General: oriented to person, oriented to place and oriented to time Cranial nerves: Yes Equal, round and reactive pupils present Cognition (Neuro): normal cognition Speech: No Abnormal speech present Gait exam (Neuro): Normal gait present Motor exam (neuro): no tremor noted Extrem Right upper extremity: full ROM Left upper extremity: full ROM Right lower extremity: full ROM; no edema Left lower extremity: full ROM; no edema Psych Appearance: grossly normal Mental Status: mental status grossly normal Speech and movement: Normal speech and movement present Affect: normal affect Attitude: cooperative Thought process: Normal thought process present Office Procedures Flu Questionnaire Does the patient have a severe egg allergy?: No Does the patient have severe life threatening allergies?: No Does the patient have a fever or illness today?: No Has the patient ever had Guillain-[place] Syndrome?: No Has the patient ever had any past reaction to a flu shot?: No Immunizations Fluarix [id number] (PF) 45 mcg (15 mcg x 3)/0.5 mL IM syringe Performing Provider: Deandre Chen PA-C [facility] Administered by: Radha Diaz CMA on 11/25/24 12:10 Dose Route Admin Location Dispensed Lot Number Expiration Date [facility] Server Programmer 0.5 mL IM Left Deltoid 0.5 mL [id number] 08/18/25 [id number] [employer] VIS Given Date VIS Provided VIS Publication Date 11/25/24 Single Vaccine 24 Eligibility Eligibility Date Funding Source Not [facility] Eligible 11/25/24 Private Coding Level of Care Code Est Pt Prev Care 40-64y(67549) Diagnoses Annual physical exam Z00.00 SOBOE (shortness of breath on exertion) R06.02 Mixed hyperlipidemia E78.2 Hyperlipidemia type: mixed hyperlipidemia Primary hypertension I10 Hypertension type: primary hypertension Colon cancer screening Z12.11 Primary insomnia F51.01 Insomnia type: primary Tinea pedis of right foot B35.3 Laterality: right Class 1 obesity E66.811 Additional Codes PHQ-9 - 00013 - PHQ-9 Billing: Yes ([id number]) MONTY-7 Assessment Billing - MONTY-7 Assessment Tool: MONTY-7 Assessment 57132 ([id number]) Assessment & Plan Assessment & Plan (1) Annual physical exam: Code(s): Z00.00 - Encounter for general adult medical examination without abnormal findings Category: Medical Plan: As per HPI (2) SOBOE (shortness of breath on exertion): Code(s): R06.02 - Shortness of breath Category: Medical Plan: The patient will undergo a cardiac stress test to evaluate the cause of dyspnea on exertion, as it may be related to a cardiac issue. A chest x-ray will be performed to rule out any pulmonary causes. (3) Hyperlipidemia: Code(s): E78.5 - Hyperlipidemia, unspecified Category: Medical Qualifiers: Hyperlipidemia type: mixed hyperlipidemia Qualified Code(s): E78.2 - Mixed hyperlipidemia Plan: PATIENT HAS A HISTORY OF HYPERLIPIDEMIA. HAS NOT GOTTEN LABS IN QUITE SOME TIME. WILL RECHECK FASTING LIPID PANEL IN IF LDL ABOVE 190 WILL CONSIDER RESTARTING CHOLESTEROL MEDICATION. (4) HTN (hypertension): Code(s): I10 - Essential (primary) hypertension Category: Medical Qualifiers: Hypertension type: primary hypertension Qualified Code(s): I10 - Essential (primary) hypertension Plan: Patient's blood pressure acceptable today in office. Did have history of hypertension though is not on any medication at this time. Goal blood pressures to remain below 140/90 (5) Colon cancer screening: Code(s): Z12.11 - Encounter for screening for malignant neoplasm of colon Category: Medical Plan: Patient willing to do colonoscopy (6) Insomnia: Code(s): G47.00 - Insomnia, unspecified Category: Medical Qualifiers: Insomnia type: primary Qualified Code(s): F51.01 - Primary insomnia Plan: For insomnia, the patient will try doxepin as a sleep aid, avoiding trazodone due to previous side effects. An inhaler will be prescribed for use before physical activity to improve breathing (7) Tinea pedis: Code(s): B35.3 - Tinea pedis Category: Medical Qualifiers: Laterality: right Qualified Code(s): B35.3 - Tinea pedis Plan: Will supply patient with nystatin powder to place in his socks and shoes help reduce recurrence of tinea pedis (8) Class 1 obesity: Code(s): E66.811 - Obesity, class 1 Category: Medical Plan: Patient does understand his BMI is over 30 work on being more physically active and adapting to better eating habits to reduce his weight Orders: Orders CA stress test Today R06.02 - Shortness of breath XR chest 2V Today R06.02 - Shortness of breath Vitamin B12 and Folate Today E53.8 - Deficiency of other specified B group vitamins Vitamin D 25-OH Total Today E55.9 - Vitamin D deficiency, unspecified Complete Blood Count no Diff Today I10 - Essential (primary) hypertension Prostate Specific Antigen Scr Today Z12.11 - Encounter for screening for malignant neoplasm of colon, Z12.5 - Encounter for screening for malignant neoplasm of prostate Lipid Panel Today E78.2 - Mixed hyperlipidemia Microalbumin, Random (w Creat) Today I10 - Essential (primary) hypertension Comprehensive [place]. Panel Fast Today I10 - Essential (primary) hypertension Influenza [id number] Immunization Today Z23 - Encounter for immunization Referrals Gastroenterology Referral Z12.11 - Encounter for screening for malignant neoplasm of colon Medications: New montelukast 10 mg PO BEDTIME 90 tabs 1RF 90 days J30.89 - Other allergic rhinitis doxepin (Silenor) 6 mg PO BEDTIME 30 tabs 2RF 30 days G47.00 - Insomnia, unspecified nystatin 1 appl topical DAILY 60 grams 1RF 30 days B35.3 - Tinea pedis albuterol sulfate 90 mcg/actuation (Ventolin HFA) 1 inh inhalation QID 8.5 grams 2RF 30 days R06.02 - Shortness of breath Refilled fluticasone propionate 50 mcg/actuation (Flonase Allergy Relief) administer into each nostril 1 spray intranasal BID 16 grams 1RF 30 days J30.89 - Other allergic rhinitis
[2024-11-25 11:27] VITALS: BP 130/60; PULSE 56; TEMP 36.3; O2SAT 97; BMI 32.7
== END 2024-11-25 12:15 | disposition home or self-care (01) ==
LOC: HO.HMCH 10:51
PROVIDERS: PCP Physician Assistant; Visit Provider Physician Assistant
DX: Z00.00 Encounter for general adult medical examination without abnormal findings (principal); R06.02 Shortness of breath; Z68.32 Body mass index [BMI] 32.0-32.9, adult; E66.811 Obesity, class 1; E78.2 Mixed hyperlipidemia; I10 Essential (primary) hypertension; Z12.11 Encounter for screening for malignant neoplasm of colon; F51.01 Primary insomnia; B35.3 Tinea pedis; Z23 Encounter for immunization

== ENCOUNTER 2024-11-25 10:51 | Outpatient (REF) | payer OTHER, SELFPAY ==
--- NOTE | ~2024-11-25 | XR_ITS ---
EXAMINATION: XR CHEST CLINICAL INFORMATION: R06.02 - Shortness of breath COMPARISON: X-ray 11/29/2020 TECHNIQUE: 2 views of the chest were obtained. FINDINGS: The cardiomediastinal silhouette is within normal limits. Slightly low lung volumes. No focal consolidation. Central pulmonary vasculature is stable. No pulmonary edema. No effusion. No pneumothorax is seen. No acute osseous abnormality. XR/XR chest 2V IMPRESSION: No evidence of acute pulmonary process. Electronically signed by: Ab Baca MD 11/25/2024 01:09 PM EDT
== END 2024-11-25 10:52 | disposition home or self-care (01) ==
LOC: HO.XRAY 10:51
PROVIDERS: PCP Physician Assistant; Visit Provider Physician Assistant
DX: Z00.00 Encounter for general adult medical examination without abnormal findings (principal); Z23 Encounter for immunization; Z12.11 Encounter for screening for malignant neoplasm of colon; E78.2 Mixed hyperlipidemia; R06.02 Shortness of breath; F51.01 Primary insomnia; B35.3 Tinea pedis; E66.811 Obesity, class 1; Z79.1 Long term (current) use of non-steroidal anti-inflammatories (NSAID); Z79.899 Other long term (current) drug therapy; Z68.32 Body mass index [BMI] 32.0-32.9, adult
CPT/HCPCS: 71046; 90471; 90656; 96127; 99396

== ENCOUNTER 2024-11-25 12:22 | Outpatient (REF) | payer OTHER, SELFPAY ==
[2024-11-25 13:11] LABS: Hematocrit 41.1 % (42.0-52.0); Hemoglobin 13.7 g/dl (14.0-18.0); Mean Corpuscular HGB Conc 33.3 g/dl (31.0-36.0); Mean Corpuscular Hemoglobin 31.7 pg (27.0-33.0); Mean Corpuscular Volume 95.1 fL (80.0-98.0); NRBC Abs Auto 0.000 X10*3/uL (0.0-0.012); NRBC Pct Auto 0.0 /100WBC (0.0-0.2); Platelet Count 223 X10*3/uL (160-400); Red Blood Count 4.32 X10*6/uL (4.60-5.80); White Blood Count 8.2 X10*3/uL (4.8-10.8)
[2024-11-25 13:27] LABS: Alanine Aminotransferase 14 U/L (0-40); Albumin Level 4.2 g/dL (3.5-5.0); Alkaline Phosphatase 48 U/L (39-117); Anion Gap 10 (12-20); Aspartate Amino Transferase 28 U/L (5-37); Blood Urea Nitrogen 17 mg/dL (9-16); Calcium 8.9 mg/dL (8.4-10.2); Carbon Dioxide 26 mmol/L (22-29); Chloride 110 mmol/L (96-108); Cholesterol 152 mg/dL (<200); Estimated Glomerular Filt Rate > 60; HDL Cholesterol 36 mg/dL (>40); Potassium 4.3 mmol/L (3.3-5.1); Sodium 142 mmol/L (135-145); Total Protein 6.6 g/dL (6.5-8.0); Triglycerides 136 mg/dL (<150)
[2024-11-25 13:56] LABS: Folate 10.1 ng/mL (> or = 4.0); Vitamin B12 275 pg/mL (200-900)
[2024-11-25 14:44] LABS: Microalbum/Creatinine Ratio Ur 22.7 ug/mg cr (<30)
== END 2024-11-25 12:23 | disposition home or self-care (01) ==
LOC: HO.10HDL 12:22
PROVIDERS: Visit Provider Physician Assistant
DX: Z12.5 Encounter for screening for malignant neoplasm of prostate (principal); E53.8 Deficiency of other specified B group vitamins; E55.9 Vitamin D deficiency, unspecified; I10 Essential (primary) hypertension; E78.2 Mixed hyperlipidemia; E03.8 Other specified hypothyroidism
CPT/HCPCS: 36415; 80053; 80061; 82043; 82306; 82570; 82607; 82746; 84153; 85027

== ENCOUNTER → 2024-11-25 12:51 | Outpatient (BNV) | payer OTHER, SELFPAY | PROVIDERS: PCP Physician Assistant; Visit Provider Radiology Diagnostic Ultrasound | DX: R06.02 Shortness of breath (principal) | CPT/HCPCS: 71046 ==